=== PATIENT | female | born 1950 | race Caucasian/White ===

== ENCOUNTER 2018-09-23 13:08 | Inpatient (IN) ==
--- NOTE | 2018-09-23 13:44 | Emergency Department Note ---
Disposition Clinical Impression: Abdominal wall defect Bowel obstruction Qualifiers: Intestinal obstruction type: unspecified Intestinal obstruction extent: unspecified extent Qualified Code(s): K56.609 - Unspecified intestinal obstruction, unspecified as to partial versus complete obstruction Disposition: Admitted As Inpatient Condition: Good Time of Disposition: 14:58 Abdominal Pain HPI - General Chief Complaint: ED Abdominal Pain Stated Complaint: ABD Pain Nausea Time Seen by Provider: 09/23/18 13:19 Source: patient Mode of arrival: wheelchair Nursing Notes Reviewed: Yes Vital Signs Reviewed: Yes (mildly hypertensive) - History of Present Illness HPI Narrative: Ms. Chilel is a 67 year old female with history of CAD s/p stent about 5-6 years ago and she is uncertain if on DAPT, tobacco use, htn, reportedly no lung problems but on inhalers and oxygen at night time, a history of bowel surgery in 2016 at [place] for bowel obstruction of uncertain cause, large abdominal hernia, and history of hysterectomy who presents to the ED with complaint of abdominal pain that started 2 days ago and has started to develop nausea and vomiting over the last 24 hours. Last vomited this morning and was yellow clear. Patient reports that she has a tight and stabbing sensation of her abdomen that started in lower part on the right side and then travels to the upper quadrants bilaterally. No radiation to back. Patient reports it is waxing and waning, but worsening in severity. No changes in urination, no hematuria, no dysuria. Has had a small bowel movement that was watery and brown before arrival, but denies significant bowel movement, blood in bowel movement, or tenesmus. Patient does report problems having bowel movement because she is on percocet 5mg for her chronic back pain. Patient denies new changes to her back pain, but does have right sided back pain constantly and numbness of her left side of her back that is not new and started after nerve ablation in the past. Endorses no chest pain or pressure or tightness, but does report shortness of breath with exertion. Reports this started about 2 days ago as well. Patient last ate any food without nausea or vomiting yesterday afternoon. Some chills. Denies fever, sweats, chest pain, palpitations, cough, changes in urination, weakness, new loss of sensation, or rash. Pain Scale: 10 - Related Data Allergies Allergy/AdvReac Type Severity Reaction Status Date / Time codeine AdvReac Itching Verified 09/23/18 19:10 Review of Systems: As Per HPI Abdominal Pain PMH - Past Medical History Medical history: Reports: coronary artery disease (s/p stents 5-6 years ago.), hypertension, other (pulmonary issues unspecified, chronic back pain) Reports: other (PSH of bowel surgery unspecified for bowel obstructionin 2016, large abdominal hernia) Female Surgical History: Reports: hysterectomy - Social History Smoking status: Current every day smoker (1 ppd for last 7 months) Alcohol use: Reports: none Drug use: Reports: none Physical Exam - General General appearance: alert, other (mild discomfort, prefers to lay on her right side) - Head Head exam: atraumatic, normal inspection - Eye Eye exam: Present: normal appearance - ENT ENT exam: mucous membranes dry (lips cracked and dry) - Neck Neck exam: Present: normal inspection, full ROM, trachea midline - Chest Chest inspection: Present: normal inspection - Respiratory Respiratory exam: Present: wheezes (significant wheezing throughout without rales or rhonchi), other (no conversational dyspnea) - Cardiovascular Cardiovascular exam: Present: regular rate, normal rhythm, normal heart sounds - Abdominal Exam Abdominal exam: Present: soft, tenderness, normal bowel sounds, other (multiple well healed surgical scars, large abdominal wall defect bilaterally without tenderness over the defect, no overlying skin findings on abdomen. ). Absent: guarding, rebound, rigidity Abdominal tenderness: Present: RUQ, RLQ, LUQ, suprapubic - Extremities Exam Extremities exam: Present: normal inspection, normal capillary refill. Absent: tenderness, pedal edema - Back Exam Back exam: Present: normal inspection, paraspinal tenderness, other (left paraspinal back numbness, right paraspinal tenderness with palpation, minimal spinal tenderness throughout unchanged per patient) - Neurological Exam Neurological exam: Present: alert, oriented X3 - Skin Skin exam: Present: warm, dry, intact, normal color. Absent: rash, diaphoresis, pallor Course - Reevaluation(s) Reevaluation #1: Spoke with surgery about case, admit to hospitalist and place ng tube. Time: 14:47 Reevaluation #2: Spoke with hospitalist, no new orders. Admit. Time: 14:58 Vital Signs Temperature 98.4 F 09/23/18 13:09 Pulse Rate 84 09/23/18 13:09 Respiratory Rate 20 09/23/18 13:09 Blood Pressure 155/95 09/23/18 13:09 O2 Sat by Pulse Oximetry 92 09/23/18 13:09 Temperature 98.4 F 09/23/18 13:09 Pulse Rate 71 09/23/18 17:58 Respiratory Rate 16 09/23/18 17:58 Blood Pressure 152/85 09/23/18 17:58 O2 Sat by Pulse Oximetry 94 09/23/18 17:58 Oxygen Delivery Oxygen Delivery Nasal Cannula Abdominal Pain - MDM Narrative Medical decision making narrative: Patient with hx of bowel surgery with complaint of abdominal pain worsening and some nausea and vomiting. Also with endorsed shortness of breath with exertion. Given the exam and history, differential is very broad but including and not limited to possible bowel obstruction vs appendicitis vs choelcystitis vs ileus vs constipation. Will obtain labs and imaging with CT abd/pelvis non contrast. Given patients history of heart issues and she is a poor historian, ordered troponin and ekg. Dry mucous membranes, start IV fluids, may consider zofran as needed. Patient does have chronic back pain and requested pain medications stronger than percocet 5mg that she usually takes, will hold off at this time while we await workup. Low likelihood of acute abdominal causes including but not limited to bowel perforation, bowel ischemia, or AAA. CT revealed bowel obstruciton of large and small bowel with transition point of rectosigmoid junction as well as large abdominal wall defect. Zofran given, fentanyl 75mcg IVP, Admit to Hospitalist given medical history. No ng tube needed at this time as not actively vomiting. Discussed case with surgery, place ng tube and discussed case in further detail and admit to hospitalist. - Lab Data Lab results reviewed: Yes I reviewed the patient's lab results. Lab results narrative: labs reviewed and no elevated wbc. Result diagrams: 09/23/18 13:28 09/23/18 13:28 Lab Results 09/23/18 09/23/18 09/23/18 Range/Units 13:28 13:28 13:28 WBC 10.9 (4.3-11.1) K/mcL RBC 5.40 H (3.82-4.97) M/mcL Hgb 16.0 H (11.5-15.4) g/dL Hct 49.9 H (35.3-44.9) % MCV 92.4 (83.0-100.0) fL MCH 29.6 (28.0-33.3) pg MCHC 32.1 (31.6-35.5) g/dL RDW 16.3 H (11.5-14.5) % Plt Count 246 (140-400) K/mcL MPV 9.4 (9.4-12.4) fL Immature Gran % 0.5 (0-4) % Seg Neutrophils % 81.4 % Lymphocytes % 11.0 % Monocytes % 6.7 % Eosinophils % 0.2 % Basophils % 0.2 % Neutrophils # 8.9 (1.6-8.9) K/mcL Lymphocytes # 1.2 (0.6-4.6) K/mcL Monocytes # 0.7 (0.0-1.3) K/mcL Eosinophils # 0.0 (0.0-0.6) K/mcL Basophils # 0.0 (0.0-0.2) K/mcL Sodium 138 (136-145) mEq/L Potassium 4.1 (3.5-5.1) mEq/L Chloride 98 (98-107) mEq/L Carbon Dioxide 33 H (23-29) mEq/L BUN 18 (8-23) mg/dL Creatinine 1.07 (0.60-1.20) mg/dL Est GFR ( Amer) > 60 (> 60) Est GFR (Non-Af Amer) 51 L (> 60) BUN/Creatinine Ratio 17 (6-26) Glucose 128 H (70-105) mg/dL Est Mean Plasma Glucose 134 mg/dl Hemoglobin A1c 6.3 H ( - 5.6) % Calculated Osmolality 290 (280-300) Calcium 9.3 (8.6-10.3) mg/dL Total Bilirubin 0.9 (0.3-1.0) mg/dL Direct Bilirubin 0.2 (0.0-0.2) mg/dL Indirect Bilirubin 0.7 (0.0-1.2) mg/dL AST 81 H (13-39) Units/L ALT 79 H (7-52) Units/L Alkaline Phosphatase 107 H (34-104) Units/L Troponin I < 0.03 (< 0.04) ng/mL Serum Total Protein 7.0 (6.4-8.9) g/dL Albumin 4.0 (3.5-5.7) g/dL Globulin 3.0 (2.4-3.5) g/dL Albumin/Globulin Ratio 1.3 (1.1-2.2) Lipase 11 (11-82) Units/L Urine Color (Yellow) Urine Clarity (Clear) Urine pH (5.0-8.0) pH Units Ur Specific [place] (1.010-1.025) Urine Protein (Neg-Trace) mg/dL Urine Glucose (UA) (Normal) mg/dL Urine Ketones (Negative) mg/dL Urine Blood (Negative) Urine Nitrite (Negative) Urine Bilirubin (Negative) Urine Urobilinogen (Normal) mg/dL Ur Leukocyte Esterase (Negative) Urine Microscopic RBC (0-3) per hpf Urine Microscopic WBC (0-3) per hpf Ur Squamous Epith Cells (None-Few) per lpf Triple Phos Crystals Urine Bacteria (None-Few) per hpf Hyaline Casts (None-Few) per lpf Ur Culture Indicated? (NO) 09/23/18 Range/Units 16:05 WBC (4.3-11.1) K/mcL RBC (3.82-4.97) M/mcL Hgb (11.5-15.4) g/dL Hct (35.3-44.9) % MCV (83.0-100.0) fL MCH (28.0-33.3) pg MCHC (31.6-35.5) g/dL RDW (11.5-14.5) % Plt Count (140-400) K/mcL MPV (9.4-12.4) fL Immature Gran % (0-4) % Seg Neutrophils % % Lymphocytes % % Monocytes % % Eosinophils % % Basophils % % Neutrophils # (1.6-8.9) K/mcL Lymphocytes # (0.6-4.6) K/mcL Monocytes # (0.0-1.3) K/mcL Eosinophils # (0.0-0.6) K/mcL Basophils # (0.0-0.2) K/mcL Sodium (136-145) mEq/L Potassium (3.5-5.1) mEq/L Chloride (98-107) mEq/L Carbon Dioxide (23-29) mEq/L BUN (8-23) mg/dL Creatinine (0.60-1.20) mg/dL Est GFR ( Amer) (> 60) Est GFR (Non-Af Amer) (> 60) BUN/Creatinine Ratio (6-26) Glucose (70-105) mg/dL Est Mean Plasma Glucose mg/dl Hemoglobin A1c ( - 5.6) % Calculated Osmolality (280-300) Calcium (8.6-10.3) mg/dL Total Bilirubin (0.3-1.0) mg/dL Direct Bilirubin (0.0-0.2) mg/dL Indirect Bilirubin (0.0-1.2) mg/dL AST (13-39) Units/L ALT (7-52) Units/L Alkaline Phosphatase (34-104) Units/L Troponin I (< 0.04) ng/mL Serum Total Protein (6.4-8.9) g/dL Albumin (3.5-5.7) g/dL Globulin (2.4-3.5) g/dL Albumin/Globulin Ratio (1.1-2.2) Lipase (11-82) Units/L Urine Color Dark Yellow (Yellow) Urine Clarity Turbid A (Clear) Urine pH 7.5 (5.0-8.0) pH Units Ur Specific [place] 1.023 (1.010-1.025) Urine Protein 30 H (Neg-Trace) mg/dL Urine Glucose (UA) Normal (Normal) mg/dL Urine Ketones Trace H (Negative) mg/dL Urine Blood Negative (Negative) Urine Nitrite Negative (Negative) Urine Bilirubin Small H (Negative) Urine Urobilinogen Normal (Normal) mg/dL Ur Leukocyte Esterase Small H (Negative) Urine Microscopic RBC 5-15 H (0-3) per hpf Urine Microscopic WBC 5-15 H (0-3) per hpf Ur Squamous Epith Cells Many H (None-Few) per lpf Triple Phos Crystals Present Urine Bacteria Moderate H (None-Few) per hpf Hyaline Casts None Seen (None-Few) per lpf Ur Culture Indicated? YES A (NO) - Radiology Data Radiology results reviewed: Yes I reviewed the patient's radiology results. Abdomen/Pelvis CT 09/23/18 13:28 IMPRESSION: Findings compatible with bowel obstruction involving both large and small bowel with transition point in region of anastomotic sutures of rectosigmoid junction. Superimposed colonic diverticulosis without evidence for diverticulitis. Superimposed large ventral abdominal hernia which contains both loops of large and small bowel. This does not appear to be contributing to the bowel obstruction. No evidence for strangulation or incarceration identified. Additional incidental findings as above, none of which require dedicated imaging follow-up. D/ / 09/23/2018 14:19:29 Jae Rodriguez MD / stan Interpreting Provider: Jae Rodriguez MD - EKG Data EKG attestation: Yes I reviewed and interpreted this EKG. EKG results narrative: nonspecific t wave inversion in lead aVL. rate 73 EKG shows normal: sinus rhythm Rate: normal Rhythm: NSR When compared to previous EKG there are: no significant changes Interpretation: no acute changes, normal EKG
[2018-09-23 13:49] LABS: Basophils % 0.2 %; Eosinophils % 0.2 %; Hematocrit 49.9 % (35.3-44.9); Immature Granulocytes % 0.5 % (0-4); Lymphocytes # 1.2 K/mcL (0.6-4.6); Mean Corpuscular HGB Conc 32.1 g/dL (31.6-35.5); Mean Corpuscular Hemoglobin 29.6 pg (28.0-33.3); Mean Corpuscular Volume 92.4 fL (83.0-100.0); Mean Platelet Volume 9.4 fL (9.4-12.4); Monocytes # 0.7 K/mcL (0.0-1.3); Monocytes % 6.7 %; Neutrophils # 8.9 K/mcL (1.6-8.9); Platelet Count 246 K/mcL (140-400); Red Cell Distribution Width 16.3 % (11.5-14.5); Segmented Neutrophils % 81.4 %
[2018-09-23] MEDS ORDERED: 0.9 % Sodium Chloride 1,000 ML IVC ONE (13:52)
[2018-09-23 13:59] LABS: Alanine Aminotransferase 79 Units/L (7-52); Albumin/Globulin Ratio 1.3 (1.1-2.2); Alkaline Phosphatase 107 Units/L (34-104); Aspartate Amino Transferase 81 Units/L (13-39); BUN/Creatinine Ratio 17 (6-26); Bilirubin,Direct 0.2 mg/dL (0.0-0.2); Bilirubin,Indirect 0.7 mg/dL (0.0-1.2); Bilirubin,Total 0.9 mg/dL (0.3-1.0); Blood Urea Nitrogen 18 mg/dL (8-23); Calcium 9.3 mg/dL (8.6-10.3); Carbon Dioxide 33 mEq/L (23-29); Chloride 98 mEq/L (98-107); Glucose 128 mg/dL (70-105); Lipase 11 Units/L (11-82); Osmolality,Calculated 290 (280-300); Potassium 4.1 mEq/L (3.5-5.1); Sodium 138 mEq/L (136-145); eGFR For Non-African Americans 51 (> 60)
[2018-09-23 14:06] LABS: Troponin I < 0.03 ng/mL (< 0.04)
[2018-09-23] MEDS ORDERED: Ondansetron 4 MG/2 ML VIAL IVP ONE ×2 (14:32→17:46)
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
[2018-09-23] MEDS ORDERED: *HR* FentaNYL (PF) 100 MCG/2 ML VIAL IVP ONE (14:45)
[2018-09-23] MEDS ORDERED: *HR* FentaNYL PATCH 75 MCG PATCH TD SCH (14:45)
[2018-09-23] MEDS ORDERED: Naloxone 0.4 MG/ML INJ IVP PRN (15:04)
[2018-09-23] MEDS ORDERED: OXYCODONE Oral CONC 10 MG/0.5 ML ORAL.SYG SL PRN (15:04)
[2018-09-23] MEDS ORDERED: D5% in Water 1,000 ML IVC PRN (15:07)
[2018-09-23] MEDS ORDERED: Dextrose Gel 15 GM/37.5 ML TUBE PO PRN ×2 (15:07)
[2018-09-23] MEDS ORDERED: *HR* Dextrose 50 % in Water (Syg) 50 ML SYRINGE IVP PRN (15:07)
--- NOTE | 2018-09-23 15:09 | Internal Med History&Physical ---
<Turner Khan - Last Filed: 09/23/18 16:07> Date of Encounter: 09/23/18 Time of Encounter: 15:25 Internal Medicine - H&P: HPI Chief complaint: Abdominal pain Admitted From: Emergency Dept Plans for Post Hospital Care: Home History of present illness: Ms. Chilel is a 67 year old female with history of coronary artery disease status post stents approximately 78 years ago, hypertension, bowel obstruction in 2016 requiring surgical intervention who presented to the ED with 2 day history of nausea and vomiting as well as periumbilical abdominal pain. She states the periumbilical pain that started approximately 2 days ago and it radiates towards the right upper quadrant. The pain is extremely severe and is constant. It is approximately 10 out of 10 in severity and is cramping in nature. It is associated with nausea and vomiting, and she has had constipation as well. She does say that she had a regular bowel movement on Thursday, however since that time she has had very minimal bowel movements including one episode of very small diarrhea on both days however she is not having very much gas at this point even. She said that she has never had anything significantly similar to this, however the pain is excruciating. She says that she has tried several [id number] treatments for this including Gas-X, Mally-Higgins, milk of magnesia however none of that seems to help. There does not seem to be any position that makes the pain any better and eating seems to make it worse. In the emergency room the patient received a CT of the abdomen and pelvis which demonstrated findings compatible with bowel obstruction involving both large and small bowel with transition point in the region of the anastomotic sutures of the rectosigmoid junction. Her vitals were essentially normal, as were her labs with the exception of a very mild transaminitis with AST 81 and ALT 79. Surgery was consulted from the ER and recommended insertion of an NG tube for gastric decompression and admission to the hospitalist team. Past Med Surg Social [facility]am HX - Past Medical History Medical history: coronary artery disease (s/p stents 5-6 years ago.), hypertension, other (pulmonary issues unspecified, chronic back pain) - Past Surgical History Additional surgical history: bowel surgery - Social History Smoking Status: Current every day smoker (1 ppd for last 7 months) Smokeless Tobacco Status: No Alcohol use: none Drug use: none Internal Medicine - H&P: Meds Allergy/AdvReac Type Severity Reaction Status Date / Time codeine AdvReac Itching Verified 09/23/18 15:12 All Systems PM: A 10-system review of systems was performed and is negative for pertinent findings except as documented above in the HPI. - Constitutional Constitutional: no chills, no fever(s), no night sweats - EENT Eyes: no change in vision, no discharge, no pain, no photophobia Ears: no ear discharge, no ear pain, no tinnitus Nose, mouth and throat: no dysphagia, no nasal discharge, no neck pain, no sore throat - Cardiovascular Cardiovascular ROS IM: no chest pain, no diaphoresis, no dyspnea, no lightheadedness, no palpitations, no syncope - Respiratory Respiratory: dyspnea, dyspnea on exertion, wheezing, no cough, no pain on inspiration, no excessive phlegm production - Gastrointestinal Gastrointestinal: abdominal pain, change in bowel habits, constipation, cramping, vomiting, no diarrhea, no hematemesis, no hematochezia, no melena, no nausea - Genitourinary Genitourinary: no change in urinary stream, no dysuria, no flank pain, no hem aturia - Musculoskeletal Musculoskeletal ROS IM: no numbness, no tingling - Integumentary Integumentary IM: no rash, no unusual bruising - Neurological Neurological ROS: no confusion, no convulsions, no focal weakness, no numbness, no tingling, no tremor(s) - Hematologic/Lymphatic Hematologic/Lymphatic: no easy bruising - Constitutional Vitals: Temp Pulse Resp BP Pulse Ox 98.4 F 71 18 131/73 95 09/23/18 13:09 09/23/18 14:52 09/23/18 14:52 09/23/18 14:52 09/23/18 14:52 Exam: Gen: Vitals noted. No acute distress but appears very uncomfortable Eyes: anicteric sclerae, moist conjunctivae; no lid-lag; Pupils equal and react nikhil to light HENT: Atraumatic; oropharynx clear with dry membranes and no mucosal ulcerations; normal hard and soft palate Neck: Trachea midline; supple, no thyromegaly or lymphadenopathy Cardiac: RRR, no murmur, +S1/S2 Pulmonary: Diffusely wheezy to auscultation bilaterally Abdomen: soft, tender to deep palpation. Hypoactive bowel sounds noted in all 4 quadrants. No masses or hepatosplenomegaly. There is a midline vertical scar with bulging hernia noted bilaterally MSK: ROM intact, no joint swelling noted Extremities: no BLE edema, nontender calf, no cyanosis or clubbing Skin: Normal temperature, turgor and texture; no rash, ulcers or subcutaneous nodules Neuro: moves all extremities, no focal deficits. Psych: Appropriate mood and behavior. A&Ox3 Internal Med - H&P Results - Labs CBC & Chem 7: 09/23/18 13:28 09/23/18 13:28 Labs: Short CBC 09/23/18 Range/Units 13:28 WBC 10.9 (4.3-11.1) K/mcL Hgb 16.0 H (11.5-15.4) g/dL Hct 49.9 H (35.3-44.9) % Plt Count 246 (140-400) K/mcL Neutrophils # 8.9 (1.6-8.9) K/mcL BMP 09/23/18 13:28 Sodium 138 Potassium 4.1 Chloride 98 Carbon Dioxide 33 H BUN 18 Creatinine 1.07 Glucose 128 H Calcium 9.3 Cardiac Enzymes 09/23/18 Range/Units 13:28 Troponin I < 0.03 (< 0.04) ng/mL Liver Function 09/23/18 Range/Units 13:28 Total Bilirubin 0.9 (0.3-1.0) mg/dL Direct Bilirubin 0.2 (0.0-0.2) mg/dL AST 81 H (13-39) Units/L ALT 79 H (7-52) Units/L Alkaline Phosphatase 107 H (34-104) Units/L Albumin 4.0 (3.5-5.7) g/dL - Impressions ITS Impressions Abdomen/Pelvis CT 09/23/18 13:28 IMPRESSION: Findings compatible with bowel obstruction involving both large and small bowel with transition point in region of anastomotic sutures of rectosigmoid junction. Superimposed colonic diverticulosis without evidence for diverticulitis. Superimposed large ventral abdominal hernia which contains both loops of large and small bowel. This does not appear to be contributing to the bowel obstruction. No evidence for strangulation or incarceration identified. Additional incidental findings as above, none of which require dedicated imaging follow-up. D/ / 09/23/2018 14:19:29 Jae Rodriguez MD / stan Interpreting Provider: Jae Rodriguez MD - Assessment and Plan (1) Bowel obstruction Current Visit: Yes Status: Acute Assessment and plan: Bowel obstruction involving the large and small intestine as noted on CT abdomen Patient does have history of small and large bowel obstruction the past requiring surgical correction Surgery was consulted from the ED, notes that surgery was completed in 1998 in 1999 at [place] and patient does have hostile abdomen Per surgery recommendation, place NG tube with bowel rest Plan for small bowel follow-through in 72 hours Nothing by mouth IV fluids with D5 0.45 nacl Obtain cardiac clearance for potential surgery Qualifiers: Intestinal obstruction type: obstruction due to adhesions Intestinal obstruction extent: partial Qualified Code(s): K56.51 - Intestinal adhesions [bands], with partial obstruction (2) COPD (chronic obstructive pulmonary disease) Current Visit: Yes Status: Acute Assessment and plan: Suspect severe COPD, on brochodilators at home however unknown which ones On home O2 at night at 2L Will start advair, duonebs as needed Continous O2 monitoring Titrate O2 to 88-92% Qualifiers: COPD type: chronic bronchitis Chronic bronchitis type: simple Qualified Code(s): J41.0 - Simple chronic bronchitis (3) CAD (coronary artery disease) Current Visit: Yes Status: Acute Assessment and plan: CAD s/p PCI 7-8 years ago Unknown medical regimen Obtain medicine list Plan to continue home meds EKG in ED shows nonspecific ST-T wave changes, will need to compare to old EKG Request records from [facility] Will get Echo Qualifiers: Coronary Disease-Associated Artery/Lesion type: [place] artery [place] vs. transplanted heart: cherokee heart Associated angina: without angina Qualified Code(s): I25.10 - Atherosclerotic heart disease of cherokee coronary artery without angina pectoris (4) Hypertension Current Visit: Yes Status: Acute Assessment and plan: Monitor BP Qualifiers: Hypertension type: essential hypertension Qualified Code(s): I10 - Essential (primary) hypertension (5) DVT prophylaxis Current Visit: Yes Status: Acute Assessment and plan: SQ Heparin (6) Preop cardiovascular exam Current Visit: Yes Status: Acute Assessment and plan: RCRI score 1, Class II risk, 6% 30 day mortality risk EKG has nonspecific ST-T wave changes We will compare to old EKG, repeat EKG in AM Get Echo in AM If abnormal, consider cardiology consult prior to surgery - Time Spent With Patient Total time spent is greater than 50% in coordination of care (as documented) at patient's floor/unit and/or counseling patient: <Marlon Rothman - Last Filed: 09/23/18 18:44> Date of Encounter: 09/23/18 Internal Medicine - H&P: HPI History of present illness: Ms. Chilel is a 67 year old female All Systems PM: A 10-system review of systems was performed and is negative for pertinent findings except as documented above in the HPI. - Constitutional Vitals: Temp Pulse Resp BP Pulse Ox 98.4 F 71 16 152/85 94 09/23/18 13:09 09/23/18 17:58 09/23/18 17:58 09/23/18 17:58 09/23/18 17:58 Internal Med - H&P Results - Labs CBC & Chem 7: 09/23/18 13:28 09/23/18 13:28 Labs: Short CBC 09/23/18 Range/Units 13:28 WBC 10.9 (4.3-11.1) K/mcL Hgb 16.0 H (11.5-15.4) g/dL Hct 49.9 H (35.3-44.9) % Plt Count 246 (140-400) K/mcL Neutrophils # 8.9 (1.6-8.9) K/mcL BMP 09/23/18 13:28 Sodium 138 Potassium 4.1 Chloride 98 Carbon Dioxide 33 H BUN 18 Creatinine 1.07 Glucose 128 H Calcium 9.3 Cardiac Enzymes 09/23/18 Range/Units 13:28 Troponin I < 0.03 (< 0.04) ng/mL Liver Function 09/23/18 Range/Units 13:28 Total Bilirubin 0.9 (0.3-1.0) mg/dL Direct Bilirubin 0.2 (0.0-0.2) mg/dL AST 81 H (13-39) Units/L ALT 79 H (7-52) Units/L Alkaline Phosphatase 107 H (34-104) Units/L Albumin 4.0 (3.5-5.7) g/dL Urine 09/23/18 Range/Units 16:05 Urine Color Dark Yellow (Yellow) Urine Clarity Turbid A (Clear) Urine pH 7.5 (5.0-8.0) pH Units Ur Specific [place] 1.023 (1.010-1.025) Urine Protein 30 H (Neg-Trace) mg/dL Urine Glucose (UA) Normal (Normal) mg/dL - Impressions ITS Impressions Abdomen/Pelvis CT 09/23/18 13:28 IMPRESSION: Findings compatible with bowel obstruction involving both large and small bowel with transition point in region of anastomotic sutures of rectosigmoid junction. Superimposed colonic diverticulosis without evidence for diverticulitis. Superimposed large ventral abdominal hernia which contains both loops of large and small bowel. This does not appear to be contributing to the bowel obstruction. No evidence for strangulation or incarceration identified. Additional incidental findings as above, none of which require dedicated imaging follow-up. D/ / 09/23/2018 14:19:29 Jae Rodriguez MD / stan Interpreting Provider: Jae Rodriguez MD - Assessment and Plan (1) Bowel obstruction Current Visit: Yes Status: Suspected Qualifiers: Intestinal obstruction type: obstruction due to adhesions Intestinal o bstruction extent: complete Qualified Code(s): K56.52 - Intestinal adhesions [bands] with complete obstruction (2) CAD (coronary artery disease) Current Visit: Yes Status: Acute Qualifiers: Coronary Disease-Associated Artery/Lesion type: [place] artery [place] vs. transplanted heart: cherokee heart Associated angina: without angina Qualified Code(s): I25.10 - Atherosclerotic heart disease of cherokee coronary artery without angina pectoris (3) Hypertension Current Visit: Yes Status: Acute Qualifiers: Hypertension type: essential hypertension Qualified Code(s): I10 - Essential (primary) hypertension (4) DVT prophylaxis Current Visit: Yes Status: Acute (5) COPD (chronic obstructive pulmonary disease) Current Visit: Yes Status: Acute Qualifiers: COPD type: chronic bronchitis Chronic bronchitis type: simple Qualified Code(s): J41.0 - Simple chronic bronchitis (6) Preop cardiovascular exam Current Visit: Yes Status: Acute (7) Tobacco abuse Current Visit: Yes Status: Chronic (8) Incisional hernia Current Visit: Yes Status: Chronic Qualifiers: Obstruction and gangrene presence: without obstruction or gangrene Qualified Code(s): K43.2 - Incisional hernia without obstruction or gangrene; K43.91 - Incisional hernia, without obstruction or gangrene - Time Spent With Patient Total time spent is greater than 50% in coordination of care (as documented) at patient's floor/unit and/or counseling patient: - Attending Attestation I examined this patient and my medical decision-making was reviewed with the Resident Physician on 09/23/18. I agree with the documented findings, disposition and treatment plan as described except to the extent set forth below. Ms Chilel is 67 y/o female with hx of multiple abdominal issues and large incisional hernia presented to ED with abdominal pain with vomiting. She has been found to have acute bowel obstruction. NG placed and pt seen by surgical service. She is to be admitted. Exam Alert Resting comfortably at this time Mucus membranes dry Heart not tachy No wheeze abd with scant sounds No edema Moves all extremities I/P 1. Acute bowel obstruction - NG, NPO. SBFT per surgery in 72 hours 2. Incisional hernia 3. CAD - echo ordered 4. Probable COPD - respiratory therapy. Pt is high risk for further complications and is admitted inpatient.
--- NOTE | 2018-09-23 15:32 | AcuteCare Surgery Consult Note ---
Date of Encounter: 09/23/18 Time of Encounter: 15:00 Assessment and Plan (1) Bowel obstruction Current Visit: Yes Status: Acute The patient has bowel obstruction by physical examination and CAT scan. She has a hostile abdomen with loss of domain multiple entry midline and multiple previous ostomy sites. We will plan nasogastric tube drainage with bowel rest and hydration. We will plan small bowel follow-through in 72 hours. Qualifiers: Intestinal obstruction type: obstruction due to adhesions Intestinal obstruction extent: partial Qualified Code(s): K56.51 - Intestinal adhesions [bands], with partial obstruction History of Present Illness Consult date: 09/23/18 Reason for consult: abdominal pain History of present illness: The patient is a 67-year-old morbidly obese female with severe COPD oxygen dependence and continued tobacco abuse. She has coronary artery disease with at least 2 coronary artery stents. She has a highly complex abdomen. She has a multiple entry midline incision and multiple transverse incisions in the right lower quadrant and right upper quadrant. She had surgery here at [place] in 1998 and 1999. She is also had Suzan at [facility] as recently as 2 years ago with colostomy and then follow-up reversal of colostomy. She now presents with a several day history of crampy abdominal pain and vomiting. I personally reviewed the CAT scan and the abdomen. She has a highly complex incisional hernia with loss of domain the upper abdominal incisional hernia is reducible. The CAT scan demonstrates dilated small bowel and dilated anastomosis in the right lower quadrant. Incisional hernia runs from just below the xiphoid to just above the pubis. This is highly complex with multiple openings. The largest defect is almost 20 cm. This represents a hostile abdomen with loss of domain. We will treat her with nasogastric tube drainage hydration and bowel rest. We will try to avoid surgery. We will plan at least 3 days nasogastric tube drainage followed by upper GI and small bowel follow-through to Past Med Surg [facility] - Past Medical History Medical history: coronary artery disease (s/p stents 5-6 years ago.), hypertension, other (pulmonary issues unspecified, chronic back pain) - Past Surgical History Additional surgical history: bowel surgery. The patient has had multiple surgical procedures including multiple ostomies. The patient has loss of domain at this time - Social History Smoking Status: Current every day smoker (1 ppd for last 7 months) Smokeless Tobacco Status: No Alcohol use: none Drug use: none Medications and Allergies Allergy/AdvReac Type Severity Reaction Status Date / Time codeine AdvReac Itching Verified 09/23/18 15:12 Review of Systems All systems PM: The remainder of the systems were reviewed and are negative General Surgery Exam Initial Vital Signs Temp Pulse Resp BP Pulse Ox 98.4 F 84 20 155/95 92 09/23/18 13:09/23/18 13:09/23/18 13:09/23/18 13:09/23/18 13:09 - General physical appearance well developed, moderate pain, chronically ill, obese, other (Resting dyspnea) - Neck no masses, no bruits, trachea midline, no lymphadectomy, no venous distension - Respiratory crackles: bilateral, wheezing: bilateral (Bilateral decreased breath sounds) - Abdomen Abdomen general surgery: Present: bowel sounds present, soft, non tender (The patient has no guarding and no rebound. She has a highly complex midline recurrent incisional hernia with loss of domain. The largest fascial defect is palpated at almost 20 cm. She has multiple previous ostomy sites) - Integumentary Integumentary general surgery: Present: warm and dry, no abnormal pigmentation - Neurologic Present: CN 2-12 grossly intact, normal coordination, normal sensation - Psychiatric Psychiatric general surgery: Present: appropriate, oriented to person, oriented to place, oriented to time, speech is normal, memory intact Exam Initial Vital Signs Temp Pulse Resp BP Pulse Ox 98.4 F 84 20 155/95 92 09/23/18 13:09/23/18 13:09/23/18 13:09/23/18 13:09/23/18 13:09 Results - Labs 09/23/18 13:28 09/23/18 13:28 Abnormal lab results RBC 5.40 M/mcL (3.82-4.97) H 09/23/18 13:28 Hgb 16.0 g/dL (11.5-15.4) H 09/23/18 13:28 Hct 49.9 % (35.3-44.9) H 09/23/18 13:28 RDW 16.3 % (11.5-14.5) H 09/23/18 13:28 Carbon Dioxide 33 mEq/L (23-29) H 09/23/18 13:28 Est GFR (Non-Af Amer) 51 (> 60) L 09/23/18 13:28 Glucose 128 mg/dL (70-105) H 09/23/18 13:28 AST 81 Units/L (13-39) H 09/23/18 13:28 ALT 79 Units/L (7-52) H 09/23/18 13:28 107 Units/L (34-104) H 09/23/18 13:28 Diabetes panel 09/23/18 Range/Units 13:28 Sodium 138 (136-145) mEq/L Potassium 4.1 (3.5-5.1) mEq/L Chloride 98 (98-107) mEq/L Carbon Dioxide 33 H (23-29) mEq/L BUN 18 (8-23) mg/dL Creatinine 1.07 (0.60-1.20) mg/dL Glucose 128 H (70-105) mg/dL Calcium 9.3 (8.6-10.3) mg/dL AST 81 H (13-39) Units/L ALT 79 H (7-52) Units/L Alkaline Phosphatase 107 H (34-104) Units/L Albumin 4.0 (3.5-5.7) g/dL Calcium panel 09/23/18 Range/Units 13:28 Calcium 9.3 (8.6-10.3) mg/dL Albumin 4.0 (3.5-5.7) g/dL Pituitary panel 09/23/18 Range/Units 13:28 Sodium 138 (136-145) mEq/L Potassium 4.1 (3.5-5.1) mEq/L Chloride 98 (98-107) mEq/L Carbon Dioxide 33 H (23-29) mEq/L BUN 18 (8-23) mg/dL Creatinine 1.07 (0.60-1.20) mg/dL Glucose 128 H (70-105) mg/dL Calcium 9.3 (8.6-10.3) mg/dL Adrenal panel 09/23/18 Range/Units 13:28 Sodium 138 (136-145) mEq/L Potassium 4.1 (3.5-5.1) mEq/L Chloride 98 (98-107) mEq/L Carbon Dioxide 33 H (23-29) mEq/L BUN 18 (8-23) mg/dL Creatinine 1.07 (0.60-1.20) mg/dL Glucose 128 H (70-105) mg/dL Calcium 9.3 (8.6-10.3) mg/dL Total Bilirubin 0.9 (0.3-1.0) mg/dL AST 81 H (13-39) Units/L ALT 79 H (7-52) Units/L Alkaline Phosphatase 107 H (34-104) Units/L Albumin 4.0 (3.5-5.7) g/dL All other labs normal. - Imaging CT scan - abdomen: image reviewed (I personally reviewed the CAT scan the abdome n. She has dilated small bowel and dilated the anastomosis on the right side of the abdomen. There are no intra-abdominal abscesses or fluid collections. Findings are consistent with bowel obstruction.) Consult Discharge Plan - Plan Referrals: NONE,PCP [Primary Care Provider] -
[2018-09-23] MEDS ORDERED: Ipratropium/Albuterol Neb 3 ML IH PRN (15:46)
[2018-09-23 15:59] LABS: Estimated Average Glucose 134 mg/dl; Hemoglobin A1C 6.3 %
[2018-09-23 16:21] LABS: Bilirubin,Urine Small (Negative); Blood,Urine Negative (Negative); Clarity,Urine Turbid (Clear); Color,Urine Dark Yellow (Yellow); Glucose,Urine (UA) Normal (Normal); Ketones,Urine Trace mg/dL (Negative); Leukocyte Esterase,Urine Small (Negative); Nitrite,Urine Negative (Negative); PH,Urine 7.5 pH Units (5.0-8.0); Protein,Urine 30 mg/dL (Neg-Trace); Specific Gravity,Urine 1.023 (1.010-1.025); Urobilinogen,Urine Normal (Normal)
[2018-09-23 16:23] LABS: Bacteria,Urine Moderate per hpf (None-Few); Hyaline Casts,Urine None Seen per lpf (None-Few); Squamous Epithelial Cell,Urine Many per lpf (None-Few)
[2018-09-23 16:53] LABS: Triple Phosphate Crystal,Urine Present
[2018-09-23] MEDS ORDERED: *HR* HYDROmorphone (PF) 1 MG/ML SYRINGE IVP ONE (17:46)
[2018-09-23] MEDS: Budesonide/Formoterol 80/4.5 MDI IH SCH (21:49)
[2018-09-23] MEDS: *HR* Heparin 5,000 UNIT/ML VIAL SQ SCH (23:02)
[2018-09-23] MEDS: OXYCODONE Oral CONC 10 MG/0.5 ML ORAL.SYG SL PRN (23:02)
[2018-09-23] MEDS: Nicotine 21 MG PATCH.TD24 TD SCH (23:03)
[2018-09-23] MEDS: D5% in 0.45% NACL 1,000 ML IVC SCH (23:03)
[2018-09-24 05:09] LABS: Basophils % 0.1 %; Eosinophils % 0.4 %; Hematocrit 46.7 % (35.3-44.9); Hemoglobin 14.8 g/dL (11.5-15.4); Immature Granulocytes % 0.2 % (0-4); Lymphocytes # 1.5 K/mcL (0.6-4.6); Lymphocytes % 18.4 %; Mean Corpuscular HGB Conc 31.7 g/dL (31.6-35.5); Mean Corpuscular Hemoglobin 29.7 pg (28.0-33.3); Mean Corpuscular Volume 93.6 fL (83.0-100.0); Mean Platelet Volume 9.8 fL (9.4-12.4); Monocytes # 1.2 K/mcL (0.0-1.3); Monocytes % 14.9 %; Neutrophils # 5.4 K/mcL (1.6-8.9); Platelet Count 228 K/mcL (140-400); Red Blood Count 4.99 M/mcL (3.82-4.97); Red Cell Distribution Width 15.9 % (11.5-14.5)
[2018-09-24] MEDS: OXYCODONE Oral CONC 10 MG/0.5 ML ORAL.SYG SL PRN ×2 (05:10→09:44)
[2018-09-24] MEDS: *HR* Heparin 5,000 UNIT/ML VIAL SQ SCH ×3 (05:10→23:46)
[2018-09-24 05:19] LABS: Prothrombin Time 11.3 Seconds (9.4-12.1)
[2018-09-24 05:24] LABS: Alanine Aminotransferase 61 Units/L (7-52); Albumin 3.7 g/dL (3.5-5.7); Albumin/Globulin Ratio 1.5 (1.1-2.2); Alkaline Phosphatase 95 Units/L (34-104); Aspartate Amino Transferase 49 Units/L (13-39); BUN/Creatinine Ratio 21 (6-26); Bilirubin,Total 0.6 mg/dL (0.3-1.0); Blood Urea Nitrogen 23 mg/dL (8-23); Carbon Dioxide 31 mEq/L (23-29); Chloride 101 mEq/L (98-107); Globulin 2.5 g/dL (2.4-3.5); Glucose 140 mg/dL (70-105); Magnesium 2.3 mg/dL (1.6-2.6); Osmolality,Calculated 292 (280-300); Potassium 3.9 mEq/L (3.5-5.1); Sodium 138 mEq/L (136-145); Total Protein 6.2 g/dL (6.4-8.9); eGFR For Non-African Americans 50 (> 60)
[2018-09-24] MEDS: Ondansetron 4 MG/2 ML VIAL IVP PRN (05:39)
[2018-09-24] MEDS: Budesonide/Formoterol 80/4.5 MDI IH SCH ×2 (07:23→20:08)
--- NOTE | 2018-09-24 08:16 | Internal Med Progress Note ---
<Marlon Rothman - Last Filed: 09/24/18 19:12> Hospitalist Progress Note - Encounter Date of Encounter: 09/24/18 - Exam Vitals: Temp Pulse Resp BP Pulse Ox 98.6 F 72 16 147/63 94 09/24/18 15:51 09/24/18 15:51 09/24/18 15:51 09/24/18 15:51 09/24/18 15:51 - Assessment and Plan (1) Bowel obstruction Current Visit: Yes Status: Acute (2) CAD (coronary artery disease) Current Visit: Yes Status: Acute (3) Hypertension Current Visit: Yes Status: Acute (4) DVT prophylaxis Current Visit: Yes Status: Acute (5) COPD (chronic obstructive pulmonary disease) Current Visit: Yes Status: Acute (6) Preop cardiovascular exam Current Visit: Yes Status: Acute (7) Tobacco abuse Current Visit: Yes Status: Chronic (8) Incisional hernia Current Visit: Yes Status: Chronic - Time Spent with Patient Total time spent is greater than 50% in coordination of care (as documented) at patient's floor/unit and/or counseling patient: Internal Medicine: Result - Labs CBC & Chem 7: 09/24/18 04:43 09/24/18 04:43 Labs: Short CBC 09/24/18 Range/Units 04:43 WBC 8.2 (4.3-11.1) K/mcL Hgb 14.8 (11.5-15.4) g/dL Hct 46.7 H (35.3-44.9) % Plt Count 228 (140-400) K/mcL Neutrophils # 5.4 (1.6-8.9) K/mcL BMP 09/24/18 04:43 Sodium 138 Potassium 3.9 Chloride 101 Carbon Dioxide 31 H BUN 23 Creatinine 1.08 Glucose 140 H Calcium 9.0 Liver Function 09/24/18 Range/Units 04:43 Total Bilirubin 0.6 (0.3-1.0) mg/dL AST 49 H (13-39) Units/L ALT 61 H (7-52) Units/L Alkaline Phosphatase 95 (34-104) Units/L Albumin 3.7 (3.5-5.7) g/dL - ABG Interpretation ABG results: PT/INR, D-dimer PT 11.3 Seconds (9.4-12.1) 09/24/18 04:43 - Impressions Impressions Abdomen/Pelvis CT 09/23/18 13:28 IMPRESSION: Findings compatible with bowel obstruction involving both large and small bowel with transition point in region of anastomotic sutures of rectosigmoid junction. Superimposed colonic diverticulosis without evidence for diverticulitis. Superimposed large ventral abdominal hernia which contains both loops of large and small bowel. This does not appear to be contributing to the bowel obstruction. No evidence for strangulation or incarceration identified. Additional incidental findings as above, none of which require dedicated imaging follow-up. D/ / 09/23/2018 14:19:29 Jae Rodriguez MD / stan Interpreting Provider: Jae Rodriguez MD Echocardiogram 09/23/18 15:44 Impressions: LVEF 55-60%. Mild left ventricular diastolic dysfunction. Normal right ventricular size and function. No significant valvular dysfunction. No evidence of pulmonary hypertension. Left Ventricular Wall Motion: Rest Echo Findings All wall segments showed normal motion. Findings: Study Quality * Technically adequate exam. ECG Findings * Normal sinus rhythm. Left Ventricle * LVEF 55-60%. * Normal LV chamber size, wall thickness and systolic function. * Mild left ventricular diastolic dysfunction. Right Ventricle * Normal right ventricular structure and function. Left Atrium * Normal left atrial size. Right Atrium * Normal right atrial size. Interatrial Septum * Interatrial septum not well evaluated. * No evidence of PFO by color Doppler. Aortic Valve * Trileaflet aortic valve with normal function. * No aortic stenosis. * No aortic regurgitation. Mitral Valve * Normal mitral valve structure. * No mitral stenosis. * Trace mitral regurgitation. Tricuspid Valve * Normal tricuspid valve structure and function. * No tricuspid stenosis. * No tricuspid regurgitation. * Unable to estimate RVSP due to lack of TR jet. * No evidence of pulmonary hypertension. * Estimated RA pressure is 3 mmHg. Pulmonic Valve * Pulmonic valve is not well visualized. * No pulmonic stenosis. * No pulmonic regurgitation. Aorta * Normally sized aortic root. Pericardium * The pericardium appears normal. IVC * The IVC is not dilated. * > 50% respiratory change KUB X-Ray 09/23/18 22:26 IMPRESSION: The enteric tube remains within the esophagus. The tube needs to be advanced 15 cm. D/ / Leo Chester MD / Leo Chester MD Interpreting Provider: Leo Chester MD X-Ray 09/24/18 00:15 IMPRESSION: 1. Nasogastric tube with its tip in the body of the stomach. D/ / Jaziel Galan MD / Jaziel Galan MD Interpreting Provider: Jaziel Galan MD Consult Discharge Plan - Plan Referrals: NONE,PCP [Primary Care Provider] - - Attending Attestation I examined this patient and my medical decision-making was reviewed with the Resident Physician on 09/24/18. I agree with the documented findings, disposition and treatment plan as described except to the extent set forth below. Ms Chilel is currently admitted for acute bowel obstruction. She remains moderate to high risk due to potential for worsening clinical status. Ms Chilel has had bowel movements today. No fever or chills. No CP. Breathing OK at this time. Exam alert Comfortable lying flat. Mucus membranes dry Heart reg No wheeze currently Abd soft. Faint bowel sounds No edema I/P 1. Bowel obstruction - per surgery. NPO with NG 2. Probable COPD Further diagnoses and plan as above. <Turner Khan - Last Filed: 09/24/18 19:28> Hospitalist Progress Note - Encounter Date of Encounter: 09/24/18 Time of Encounter: 10:10 - Subjective Interval History: The patient is resting in bed at time of examination. She says that this morning she has had 12 bowel movements already which are loose, and that her abdominal pain has largely resolved as a result. She has had a significant amount of fluid out per NG tube to LIS as well. Patient remains NPO at this time. - Exam Vitals: Temp Pulse Resp BP Pulse Ox 98.3 F 71 16 153/90 95 09/24/18 07:38 09/24/18 07:38 09/24/18 07:38 09/24/18 07:38 09/24/18 07:38 Exam: Gen: Vitals noted. No acute distress but appears very uncomfortable HENT: Atraumatic; oropharynx clear with dry membranes and no mucosal ulcerations; normal hard and soft palate. NG tube in place. Pulmonary: Diffusely wheezy to auscultation bilaterally Abdomen: soft, tender to deep palpation. Hypoactive bowel sounds noted in all 4 quadrants. No masses or hepatosplenomegaly. There is a midline vertical scar w ith bulging hernia noted bilaterally Extremities: no BLE edema, nontender calf, no cyanosis or clubbing Skin: Normal temperature, turgor and texture; no rash, ulcers or subcutaneous nodules - Assessment and Plan (1) Bowel obstruction Current Visit: Yes Status: Acute Assessment and Plan: Bowel obstruction involving the large and small intestine as noted on CT abdomen Patient does have history of small and large bowel obstruction the past r equiring surgical correction Surgery was consulted from the ED, notes that surgery was completed in 1998 in 1999 at [facility] and patient does have hostile abdomen Per surgery recommendation, place NG tube with bowel rest Plan for small bowel follow-through in 72 hours Nothing by mouth IV fluids with D5 0.45 nacl (2) CAD (coronary artery disease) Current Visit: Yes Status: Acute Assessment and Plan: CAD s/p PCI 7-8 years ago EKG in ED shows nonspecific ST-T wave changes, will need to compare to old EKG Request records from [facility] ED Echo shows LVEF 55-60% with mild LVDD but otherwise normal (3) Hypertension Current Visit: Yes Status: Acute Assessment and Plan: Monitor BP (4) COPD (chronic obstructive pulmonary disease) Current Visit: Yes Status: Acute Assessment and Plan: Suspect severe COPD, on brochodilators at home however unknown which ones On home O2 at night at 2L Will start advair, duonebs as needed Continous O2 monitoring Titrate O2 to 88-92% (5) Preop cardiovascular exam Current Visit: Yes Status: Acute Assessment and Plan: RCRI score 1, Class II risk, 6% 30 day mortality risk EKG has nonspecific ST-T wave changes Echo is relatively unremarkable, appears safe for anesthesia Risk may be higher associated with pulmonary function given COPD (6) Tobacco abuse Current Visit: Yes Status: Chronic Assessment and Plan: Nicotine patch (7) Incisional hernia Current Visit: Yes Status: Chronic (8) DVT prophylaxis Current Visit: Yes Status: Acute Assessment and Plan: SQ Heparin - Time Spent with Patient Total time spent is greater than 50% in coordination of care (as documented) at patient's floor/unit and/or counseling patient: Internal Medicine: Result - Labs CBC & Chem 7: 09/24/18 04:43 09/24/18 04:43 Labs: Short CBC 09/23/18 09/24/18 Range/Units 13:28 04:43 WBC 10.9 8.2 (4.3-11.1) K/mcL Hgb 16.0 H 14.8 (11.5-15.4) g/dL Hct 49.9 H 46.7 H (35.3-44.9) % Plt Count 246 228 (140-400) K/mcL Neutrophils # 8.9 5.4 (1.6-8.9) K/mcL BMP 09/23/18 09/24/18 13:28 04:43 Sodium 138 138 Potassium 4.1 3.9 Chloride 98 101 Carbon Dioxide 33 H 31 H BUN 18 23 Creatinine 1.07 1.08 Glucose 128 H 140 H Calcium 9.3 9.0 Cardiac Enzymes 09/23/18 Range/Units 13:28 Troponin I < 0.03 (< 0.04) ng/mL Liver Function 09/23/18 09/24/18 Range/Units 13:28 04:43 Total Bilirubin 0.9 0.6 (0.3-1.0) mg/dL Direct Bilirubin 0.2 (0.0-0.2) mg/dL AST 81 H 49 H (13-39) Units/L ALT 79 H 61 H (7-52) Units/L Alkaline Phosphatase 107 H 95 (34-104) Units/L Albumin 4.0 3.7 (3.5-5.7) g/dL Urine 09/23/18 Range/Units 16:05 Urine Color Dark Yellow (Yellow) Urine Clarity Turbid A (Clear) Urine pH 7.5 (5.0-8.0) pH Units Ur Specific [place] 1.023 (1.010-1.025) Urine Protein 30 H (Neg-Trace) mg/dL Urine Glucose (UA) Normal (Normal) mg/dL - ABG Interpretation ABG results: PT/INR, D-dimer PT 11.3 Seconds (9.4-12.1) 09/24/18 04:43 - Impressions Impressions Abdomen/Pelvis CT 09/23/18 13:28 IMPRESSION: Findings compatible with bowel obstruction involving both large and small bowel with transition point in region of anastomotic sutures of rectosigmoid junction. Superimposed colonic diverticulosis without evidence for diverticulitis. Superimposed large ventral abdominal hernia which contains both loops of large and small bowel. This does not appear to be contributing to the bowel obstruction. No evidence for strangulation or incarceration identified. Additional incidental findings as above, none of which require dedicated imaging follow-up. D/ / 09/23/2018 14:19:29 Jae Rodriguez MD / stan Interpreting Provider: Jae Rodriguez MD Echocardiogram 09/23/18 15:44 Impressions: LVEF 55-60%. Mild left ventricular diastolic dysfunction. Normal right ventricular size and function. No significant valvular dysfunction. No evidence of pulmonary hypertension. Left Ventricular Wall Motion: Rest Echo Findings All wall segments showed normal motion. Findings: Study Quality * Technically adequate exam. ECG Findings * Normal sinus rhythm. Left Ventricle * LVEF 55-60%. * Normal LV chamber size, wall thickness and systolic function. * Mild left ventricular diastolic dysfunction. Right Ventricle * Normal right ventricular structure and function. Left Atrium * Normal left atrial size. Right Atrium * Normal right atrial size. Interatrial Septum * Interatrial septum not well evaluated. * No evidence of PFO by color Doppler. Aortic Valve * Trileaflet aortic valve with normal function. * No aortic stenosis. * No aortic regurgitation. Mitral Valve * Normal mitral valve structure. * No mitral stenosis. * Trace mitral regurgitation. Tricuspid Valve * Normal tricuspid valve structure and function. * No tricuspid stenosis. * No tricuspid regurgitation. * Unable to estimate RVSP due to lack of TR jet. * No evidence of pulmonary hypertension. * Estimated RA pressure is 3 mmHg. Pulmonic Valve * Pulmonic valve is not well visualized. * No pulmonic stenosis. * No pulmonic regurgitation. Aorta * Normally sized aortic root. Pericardium * The pericardium appears normal. IVC * The IVC is not dilated. * > 50% respiratory change KUB X-Ray 09/23/18 22:26 IMPRESSION: The enteric tube remains within the esophagus. The tube needs to be advanced 15 cm. D/ / Leo Chester MD / Leo Chester MD Interpreting Provider: Leo Chester MD X-Ray 09/24/18 00:15 IMPRESSION: 1. Nasogastric tube with its tip in the body of the stomach. D/ / Jaziel Galan MD / Jaziel Galan MD Interpreting Provider: Jaziel Galan MD <Marlon Rothman - Last Filed: 09/24/18 19:12> (1) Bowel obstruction Qualifiers: Intestinal obstruction type: unspecified Intestinal obstruction extent: unspecified extent Qualified Code(s): K56.609 - Unspecified intestinal obstruction, unspecified as to partial versus complete obstruction (2) CAD (coronary artery disease) Qualifiers: Coronary Disease-Associated Artery/Lesion type: [place] artery [place] vs. transplanted heart: ch[place]koot heart Associated angina: without angina Qualified Code(s): I25.10 - Atherosclerotic heart disease of [place] coronary artery without angina pectoris (3) Hypertension Qualifiers: Hypertension type: essential hypertension Qualified Code(s): I10 - Essential (primary) hypertension (5) COPD (chronic obstructive pulmonary disease) Qualifiers: COPD type: chronic bronchitis Chronic bronchitis type: simple Qualified Code(s): J41.0 - Simple chronic bronchitis (8) Incisional hernia Qualifiers: Obstruction and gangrene presence: without obstruction or gangrene Qualified Code(s): K43.2 - Incisional hernia without obstruction or gangrene; K43.91 - Incisional hernia, without obstruction or gangrene <Turner Khan - Last Filed: 09/24/18 19:28> (1) Bowel obstruction Qualifiers: Intestinal obstruction type: unspecified Intestinal obstruction extent: unspecified extent Qualified Code(s): K56.609 - Unspecified intestinal obstruction, unspecified as to partial versus complete obstruction (2) CAD (coronary artery disease) Qualifiers: Coronary Disease-Associated Artery/Lesion type: [place] artery [place] vs. transplanted heart: ch[place] heart Associated angina: without angina Qualified Code(s): I25.10 - Atherosclerotic heart disease of [place] coronary artery without angina pectoris (3) Hypertension Qualifiers: Hypertension type: essential hypertension Qualified Code(s): I10 - Essential (primary) hypertension (4) COPD (chronic obstructive pulmonary disease) Qualifiers: COPD type: chronic bronchitis Chronic bronchitis type: simple Qualified Code(s): J41.0 - Simple chronic bronchitis (7) Incisional hernia Qualifiers: Obstruction and gangrene presence: without obstruction or gangrene Qualified Code(s): K43.2 - Incisional hernia without obstruction or gangrene; K43.91 - Incisional hernia, without obstruction or gangrene
[2018-09-24] MEDS: Nicotine 21 MG PATCH.TD24 TD SCH (09:42)
[2018-09-24] MEDS: D5% in 0.45% NACL 1,000 ML IVC SCH (09:44)
[2018-09-24] MEDS ORDERED: Chloraseptic Spray 177 ML BOTTLE MM PRN (11:10)
[2018-09-24] MEDS ORDERED: D10% in Water 500 ML IVC PRN (14:47)
[2018-09-24] MEDS ORDERED: Clinimix E 5%-15% SOLUTION 2,000 ML with MVI, adult with vitamin K 10 ML IVC SCH (17:00)
[2018-09-24] MEDS ORDERED: Insulin LISPRO 300 UNITS/3 ML VIAL SQ SCH (18:00)
[2018-09-25] MEDS: Insulin LISPRO 300 UNITS/3 ML VIAL SQ SCH ×8 (03:37→23:51)
[2018-09-25] MEDS: *HR* Heparin 5,000 UNIT/ML VIAL SQ SCH ×3 (04:29→21:57)
[2018-09-25] MEDS: D5% in 0.45% NACL 1,000 ML IVC SCH ×4 (04:29→17:20)
[2018-09-25] MEDS: OXYCODONE Oral CONC 10 MG/0.5 ML ORAL.SYG SL PRN ×2 (04:49→19:44)
[2018-09-25 04:58] LABS: VBG Ionized Calcium 1.12 mmol/L (1.15-1.35)
[2018-09-25 05:17] LABS: BUN/Creatinine Ratio 18 (6-26); Blood Urea Nitrogen 16 mg/dL (8-23); Calcium 8.7 mg/dL (8.6-10.3); Carbon Dioxide 31 mEq/L (23-29); Chloride 103 mEq/L (98-107); Glucose 118 mg/dL (70-105); Magnesium 1.8 mg/dL (1.6-2.6); Osmolality,Calculated 284 (280-300); Potassium 3.9 mEq/L (3.5-5.1); Sodium 136 mEq/L (136-145); Triglycerides 150 mg/dL (< 150); eGFR For Non-African Americans > 60 (> 60)
[2018-09-25] MEDS: Budesonide/Formoterol 80/4.5 MDI IH SCH ×2 (07:48→21:56)
[2018-09-25] MEDS: Pantoprazole 40 MG VIAL IVP SCH (08:31)
[2018-09-25] MEDS: Ondansetron 4 MG/2 ML VIAL IVP PRN ×2 (08:31→17:39)
[2018-09-25] MEDS: Nicotine 21 MG PATCH.TD24 TD SCH (08:32)
--- NOTE | 2018-09-25 10:54 | AcuteCareSurgery Progress Note ---
Date of Encounter: 09/25/18 Time of Encounter: 10:54 Subjective Patient reports: no new complaints, feels better, flatus, bowel movement Objective Vital Signs - Last 8 Hours Temp Pulse Resp BP Pulse Ox 09/25/18 07:48 16 93 09/25/18 06:30 98.8 F 69 16 144/85 96 Intake and Output 09/24/18 09/25/18 09/25/18 23:59 07:59 15:59 Intake Total 1000 / 1999 250 / 250 Output Total 850 / 850 Balance 1000 / 1450 -600 / -600 Intake: IV Fluids 1000 / 1999 250 / 250 D5% And 0.45% Nacl 1000 Ml Bag 1000 / 1999 1,000 ML @ 100 mls/hr IVC .Q10H [facility] Rx#:[id number] Intralipid 20% 250 ML @ 21 mls/ 250 / 250 hr IVPB DAILY@1700 [facility] Rx#: [id number] Oral 0 / 0 Output: Urine 300 / 300 Gastric Drainage 550 / 550 Other: Meal NPO Stool Size Moderate Stool Consistency loose # Voids 1 # Bowel Movements 1 Blood Glucose* 105 135 127 - General physical appearance no distress - Respiratory normal expansion, normal respiratory effort - Cardiovascular Cardiovascular exam: Present: RRR - Abdomen Abdomen: Present: soft, non tender, distended (non distended on my exam) - Neurologic CN 2-12 grossly intact - Psychiatric oriented to time, oriented to person, oriented to place - Labs 09/24/18 04:43 09/25/18 04:30 Diabetes panel 09/25/18 Range/Units 04:30 Sodium 136 (136-145) mEq/L Potassium 3.9 (3.5-5.1) mEq/L Chloride 103 (98-107) mEq/L Carbon Dioxide 31 H (23-29) mEq/L BUN 16 (8-23) mg/dL Creatinine 0.90 (0.60-1.20) mg/dL Glucose 118 H (70-105) mg/dL Calcium 8.7 (8.6-10.3) mg/dL Triglycerides 150 H (< 150) mg/dL Calcium panel 09/25/18 Range/Units 04:30 Calcium 8.7 (8.6-10.3) mg/dL Phosphorus 2.0 L (2.7-4.5) mg/dL Pituitary panel 09/25/18 Range/Units 04:30 Sodium 136 (136-145) mEq/L Potassium 3.9 (3.5-5.1) mEq/L Chloride 103 (98-107) mEq/L Carbon Dioxide 31 H (23-29) mEq/L BUN 16 (8-23) mg/dL Creatinine 0.90 (0.60-1.20) mg/dL Glucose 118 H (70-105) mg/dL Calcium 8.7 (8.6-10.3) mg/dL Adrenal panel 09/25/18 Range/Units 04:30 Sodium 136 (136-145) mEq/L Potassium 3.9 (3.5-5.1) mEq/L Chloride 103 (98-107) mEq/L Carbon Dioxide 31 H (23-29) mEq/L BUN 16 (8-23) mg/dL Creatinine 0.90 (0.60-1.20) mg/dL Glucose 118 H (70-105) mg/dL Calcium 8.7 (8.6-10.3) mg/dL Consult Discharge Plan - Plan Referrals: NONE,PCP [Primary Care Provider] - - Attending Attestation patient seen and examined. i have reviewed all labs, imaging and notes pertinent to this case. I have discussed the case in detail with the resident. i agree with the above assessment and plan and wish to add the following... NPO IVF NG tube: clamp x 4hrs then call with residuals cont TPN replace electrolytes activity as tolerated will continue to follow
--- NOTE | 2018-09-25 11:00 | Internal Med Progress Note ---
<Turner Khan - Last Filed: 09/25/18 10:52> Hospitalist Progress Note - Encounter Date of Encounter: 09/25/18 Time of Encounter: 10:20 - Subjective Interval History: Patient resting comfortably in bed at time of exam. She is passing gas and having some bowel movements still. She does complain of some abdominal pain, and continues to have a sore throat. She otherwise feels okay overall. - Exam Vitals: Temp Pulse Resp BP Pulse Ox 98.8 F 69 16 144/85 93 09/25/18 06:30 09/25/18 06:30 09/25/18 07:48 09/25/18 06:30 09/25/18 07:48 Exam: Gen: Vitals noted. No acute distress but appears very uncomfortable HENT: Atraumatic; oropharynx clear with dry membranes and no mucosal ulcerations; normal hard and soft palate. NG tube in place. Pulmonary: Diffusely wheezy to auscultation bilaterally Abdomen: soft, tender to deep palpation. Hypoactive bowel sounds noted in all 4 quadrants. No masses or hepatosplenomegaly. There is a midline vertical scar with bulging hernia noted bilaterally. Minimally more distended than previously. Extremities: no BLE edema, nontender calf, no cyanosis or clubbing Skin: Normal temperature, turgor and texture; no rash, ulcers or subcutaneous nodules - Assessment and Plan (1) Bowel obstruction Current Visit: Yes Status: Acute Assessment and Plan: Bowel obstruction involving the large and small intestine as noted on CT abdomen Patient does have history of small and large bowel obstruction the past requiring surgical correction Surgery was consulted from the ED, notes that surgery was completed in 1998 in 1999 at [facility] and patient does have hostile abdomen Per surgery recommendation, place NG tube with bowel rest Plan for small bowel follow-through tomorrow per surgery Nothing by mouth Pt was started on TPN (2) CAD (coronary artery disease) Current Visit: Yes Status: Acute Assessment and Plan: CAD s/p PCI 7-8 years ago EKG in ED shows nonspecific ST-T wave changes, will need to compare to old EKG Request records from [facility] Echo shows LVEF 55-60% with mild LVDD but otherwise normal (3) Hypertension Current Visit: Yes Status: Acute Assessment and Plan: Monitor BP (4) COPD (chronic obstructive pulmonary disease) Current Visit: Yes Status: Acute Assessment and Plan: Suspect severe COPD, on brochodilators at home however unknown which ones On home O2 at night at 2L Will start josiane suero as needed Continous O2 monitoring Titrate O2 to 88-92% (5) Preop cardiovascular exam Current Visit: Yes Status: Acute Assessment and Plan: RCRI score 1, Class II risk, 6% 30 day mortality risk EKG has nonspecific ST-T wave changes Echo is relatively unremarkable, appears safe for anesthesia Risk may be higher associated with pulmonary function given COPD (6) Tobacco abuse Current Visit: Yes Status: Chronic Assessment and Plan: Nicotine patch (7) DVT prophylaxis Current Visit: Yes Status: Acute Assessment and Plan: SQ Heparin (8) Incisional hernia Current Visit: Yes Status: Chronic - Time Spent with Patient Total time spent is greater than 50% in coordination of care (as documented) at patient's floor/unit and/or counseling patient: Internal Medicine: Result - Labs CBC & Chem 7: 09/24/18 04:43 09/25/18 04:30 Labs: BMP 09/25/18 04:30 Sodium 136 Potassium 3.9 Chloride 103 Carbon Dioxide 31 H BUN 16 Creatinine 0.90 Glucose 118 H Calcium 8.7 - ABG Interpretation ABG results: PT/INR, D-dimer PT 11.3 Seconds (9.4-12.1) 09/24/18 04:43 Consult Discharge Plan - Plan Referrals: NONE,PCP [Primary Care Provider] - <Marlon Rothman - Last Filed: 09/25/18 16:55> Hospitalist Progress Note - Encounter Date of Encounter: 09/25/18 - Exam Vitals: Temp Pulse Resp BP Pulse Ox 98.2 F 66 16 146/86 94 09/25/18 11:42 09/25/18 11:42 09/25/18 11:42 09/25/18 11:42 09/25/18 11:42 - Assessment and Plan (1) Bowel obstruction Current Visit: Yes Status: Acute (2) CAD (coronary artery disease) Current Visit: Yes Status: Acute (3) Hypertension Current Visit: Yes Status: Acute (4) DVT prophylaxis Current Visit: Yes Status: Acute (5) COPD (chronic obstructive pulmonary disease) Current Visit: Yes Status: Acute (6) Preop cardiovascular exam Current Visit: Yes Status: Acute (7) Tobacco abuse Current Visit: Yes Status: Chronic (8) Incisional hernia Current Visit: Yes Status: Chronic - Time Spent with Patient Total time spent is greater than 50% in coordination of care (as documented) at patient's floor/unit and/or counseling patient: Internal Medicine: Result - Labs CBC & Chem 7: 09/24/18 04:43 09/25/18 04:30 Labs: BMP 09/25/18 04:30 Sodium 136 Potassium 3.9 Chloride 103 Carbon Dioxide 31 H BUN 16 Creatinine 0.90 Glucose 118 H Calcium 8.7 - ABG Interpretation ABG results: PT/INR, D-dimer PT 11.3 Seconds (9.4-12.1) 09/24/18 04:43 - Attending Attestation I examined this patient and my medical decision-making was reviewed with the Resident Physician on 09/25/18. I agree with the documented findings, disposition and treatment plan as described except to the extent set forth below. Ms Chilel is currently admitted for acute bowel obstruction. She remains moderate to high risk due to potential for worsening clinical status. Ms Chilel is feeling OK. She is on TPN now. No fever or chills. Sore throat present. Still with BMs. Exam alert comfortable Mucus membranes dry Heart not tachy No wheeze at this time Abd distended. Soft. No edema I/P 1. Bowel obstruction - per surgical service 2. probable COPD - stable currently 3. Hernia Further diagnoses and plan as above. _ <Turner Khan - Last Filed: 09/25/18 10:52> (1) Bowel obstruction Qualifiers: Intestinal obstruction type: unspecified Intestinal obstruction extent: unspecified extent Qualified Code(s): K56.609 - Unspecified intestinal obstruction, unspecified as to partial versus complete obstruction (2) CAD (coronary artery disease) Qualifiers: Coronary Disease-Associated Artery/Lesion type: [place] artery [place] vs. transplanted heart: [place] heart Associated angina: without angina Qualified Code(s): I25.10 - Atherosclerotic heart disease of [place] coronary artery without angina pectoris (3) Hypertension Qualifiers: Hypertension type: essential hypertension Qualified Code(s): I10 - Essential (primary) hypertension (4) COPD (chronic obstructive pulmonary disease) Qualifiers: COPD type: chronic bronchitis Chronic bronchitis type: simple Qualified Code(s): J41.0 - Simple chronic bronchitis (8) Incisional hernia Qualifiers: Obstruction and gangrene presence: without obstruction or gangrene Qualified Code(s): K43.2 - Incisional hernia without obstruction or gangrene; K43.91 - Incisional hernia, without obstruction or gangrene <Marlon Rothman - Last Filed: 09/25/18 16:55> (1) Bowel obstruction Qualifiers: Intestinal obstruction type: unspecified Intestinal obstruction extent: unspecified extent Qualified Code(s): K56.609 - Unspecified intestinal obstruction, unspecified as to partial versus complete obstruction (2) CAD (coronary artery disease) Qualifiers: Coronary Disease-Associated Artery/Lesion type: [place] artery [place] vs. transplanted heart: [place] heart Associated angina: without angina Qualified Code(s): I25.10 - Atherosclerotic heart disease of [place] coronary artery without angina pectoris (3) Hypertension Qualifiers: Hypertension type: essential hypertension Qualified Code(s): I10 - Essential (primary) hypertension (5) COPD (chronic obstructive pulmonary disease) Qualifiers: COPD type: chronic bronchitis Chronic bronchitis type: simple Qualified Code(s): J41.0 - Simple chronic bronchitis (8) Incisional hernia Qualifiers: Obstruction and gangrene presence: without obstruction or gangrene Qualified Code(s): K43.2 - Incisional hernia without obstruction or gangrene; K43.91 - Incisional hernia, without obstruction or gangrene
[2018-09-25] MEDS ORDERED: Clinimix E 5%-15% SOLUTION 2,000 ML with MVI, adult with vitamin K 10 ML IVC SCH (17:00)
[2018-09-26 03:43] LABS: VBG Ionized Calcium 1.14 mmol/L (1.15-1.35)
[2018-09-26 04:01] LABS: BUN/Creatinine Ratio 19 (6-26); Blood Urea Nitrogen 15 mg/dL (8-23); Calcium 8.4 mg/dL (8.6-10.3); Carbon Dioxide 29 mEq/L (23-29); Chloride 103 mEq/L (98-107); Glucose 119 mg/dL (70-105); Magnesium 1.8 mg/dL (1.6-2.6); Osmolality,Calculated 286 (280-300); Phosphorous 3.1 mg/dL (2.7-4.5); Potassium 3.1 mEq/L (3.5-5.1); Sodium 137 mEq/L (136-145); eGFR For Non-African Americans > 60 (> 60)
[2018-09-26] MEDS: Insulin LISPRO 300 UNITS/3 ML VIAL SQ SCH ×5 (04:23→20:52)
[2018-09-26] MEDS: *HR* Heparin 5,000 UNIT/ML VIAL SQ SCH ×3 (05:06→20:52)
[2018-09-26] MEDS: D5% in 0.45% NACL 1,000 ML IVC SCH ×3 (07:34→20:54)
[2018-09-26] MEDS ORDERED: Potassium Chloride 40 MEQ, Lidocaine 1% 2 ML in D5% in Water 500 ML IVPB ONE (07:37)
[2018-09-26] MEDS: Budesonide/Formoterol 80/4.5 MDI IH SCH ×2 (07:41→20:00)
[2018-09-26] MEDS: Pantoprazole 40 MG VIAL IVP SCH (09:51)
[2018-09-26] MEDS: Nicotine 21 MG PATCH.TD24 TD SCH (09:51)
[2018-09-26] MEDS: Ondansetron 4 MG/2 ML VIAL IVP PRN (10:08)
--- NOTE | 2018-09-26 11:42 | AcuteCareSurgery Progress Note ---
<Brennan Maravilla N - Last Filed: 09/26/18 11:39> Date of Encounter: 09/26/18 Time of Encounter: 09:00 - Assessment and Plan (1) Bowel obstruction Current Visit: Yes Status: Acute Patient removed her NG tube Start clear liquid diet Qualifiers: Intestinal obstruction type: unspecified Intestinal obstruction extent: unspecified extent Qualified Code(s): K56.609 - Unspecified intestinal obstruction, unspecified as to partial versus complete obstruction Subjective Narrative: No new complaints, NG tube out Objective Vital Signs - Last 8 Hours Temp Pulse Resp BP Pulse Ox 09/26/18 10:44 97.8 F 72 15 150/85 96 09/26/18 07:44 18 95 09/26/18 07:07 98.5 F 79 15 190/87 95 09/26/18 04:09 98.7 F 69 15 154/85 93 Intake and Output 09/25/18 09/26/18 09/26/18 23:59 07:59 15:59 Intake Total 2232 / 2754 250 / 490 240 / 490 Output Total 0 / 850 800 / 800 Balance 2232 / 1904 -550 / -310 240 / -310 Intake: IV Fluids 2232 / 2754 250 / 250 D5% And 0.45% Nacl 1000 Ml Bag 728 / 1000 1,000 ML @ 100 mls/hr IVC .Q10H [facility] Rx#:[id number] Clinimix E 5%-15% SOLUTION 2, 1140 / 1140 000 ML @ 50 mls/hr IVC .Q24H ARAC[facility]I with M.v.i. Adult 10 ml Rx# :[id number] Intralipid 20% 250 ML @ 21 mls/ 250 / 250 hr IVPB DAILY@1700 [facility] Rx#: [id number] Magnesium Sulfate 2 GM In 0.9 % 104 / 104 Sodium Chloride 100 ML @ 104 mls/hr IVPB ONCE ONE Rx#: [id number] Sodium Phosphate 30 MMOL In 0.9 260 / 260 % Sodium Chloride 250 ML @ 42 mls/hr IVPB ONCE ONE Rx#: [id number] Oral 0 / 0 0 / 240 240 / 240 Output: Urine 0 / 300 0 / 0 Gastric Drainage 800 / 800 Other: Stool Size Large Small Stool Consistency liquid loose liquid Stool Color Brown Brown Green # Voids 1 3 # Bowel Movements 1 3 Weight 89.9 kg Blood Glucose* 149 115 117 Patient Weight 09/26/18 23:59 Weight 89.9 kg - General physical appearance no distress - Neck Neck exam: trachea midline, no venous distension - Respiratory clear to auscultation - Cardiovascular Cardiovascular exam: Present: RRR. Absent: murmurs - Abdomen Abdomen: Present: soft, non tender - Integumentary no rash - Musculoskeletal normal posture - Labs 09/24/18 04:43 09/26/18 03:20 Diabetes panel 09/26/18 Range/Units 03:20 Sodium 137 (136-145) mEq/L Potassium 3.1 L (3.5-5.1) mEq/L Chloride 103 (98-107) mEq/L Carbon Dioxide 29 (23-29) mEq/L BUN 15 (8-23) mg/dL Creatinine 0.79 (0.60-1.20) mg/dL Glucose 119 H (70-105) mg/dL Calcium 8.4 L (8.6-10.3) mg/dL Calcium panel 09/26/18 Range/Units 03:20 Calcium 8.4 L (8.6-10.3) mg/dL Phosphorus 3.1 (2.7-4.5) mg/dL Pituitary panel 09/26/18 Range/Units 03:20 Sodium 137 (136-145) mEq/L Potassium 3.1 L (3.5-5.1) mEq/L Chloride 103 (98-107) mEq/L Carbon Dioxide 29 (23-29) mEq/L BUN 15 (8-23) mg/dL Creatinine 0.79 (0.60-1.20) mg/dL Glucose 119 H (70-105) mg/dL Calcium 8.4 L (8.6-10.3) mg/dL Adrenal panel 09/26/18 Range/Units 03:20 Sodium 137 (136-145) mEq/L Potassium 3.1 L (3.5-5.1) mEq/L Chloride 103 (98-107) mEq/L Carbon Dioxide 29 (23-29) mEq/L BUN 15 (8-23) mg/dL Creatinine 0.79 (0.60-1.20) mg/dL Glucose 119 H (70-105) mg/dL Calcium 8.4 L (8.6-10.3) mg/dL Consult Discharge Plan - Plan Referrals: NONE,PCP [Primary Care Provider] - <Mj Carlin - Last Filed: 09/26/18 16:40> Date of Encounter: 09/26/18 Objective Vital Signs - Last 8 Hours Temp Pulse Resp BP Pulse Ox 09/26/18 10:44 97.8 F 72 15 150/85 96 Intake and Output 09/26/18 09/26/18 09/26/18 07:59 15:59 23:59 Intake Total 250 / 970 720 / 970 Output Total 800 / 800 Balance -550 / 170 720 / 170 Intake: IV Fluids 250 / 250 Intralipid 20% 250 ML @ 21 mls/ 250 / 250 hr IVPB DAILY@1700 [facility] Rx#: [id number] Oral 0 / 720 720 / 720 Output: Urine 0 / 0 Gastric Drainage 800 / 800 Other: Meal clears Percent of Meal Consumed 0% Stool Size Small Stool Consistency loose liquid Stool Color Brown # Voids 3 # Bowel Movements 3 Weight 89.9 kg Blood Glucose* 115 117 Patient Weight 09/26/18 23:59 Weight 89.9 kg - Labs 09/24/18 04:43 09/26/18 03:20 Diabetes panel 09/26/18 Range/Units 03:20 Sodium 137 (136-145) mEq/L Potassium 3.1 L (3.5-5.1) mEq/L Chloride 103 (98-107) mEq/L Carbon Dioxide 29 (23-29) mEq/L BUN 15 (8-23) mg/dL Creatinine 0.79 (0.60-1.20) mg/dL Glucose 119 H (70-105) mg/dL Calcium 8.4 L (8.6-10.3) mg/dL Calcium panel 09/26/18 Range/Units 03:20 Calcium 8.4 L (8.6-10.3) mg/dL Phosphorus 3.1 (2.7-4.5) mg/dL Pituitary panel 09/26/18 Range/Units 03:20 Sodium 137 (136-145) mEq/L Potassium 3.1 L (3.5-5.1) mEq/L Chloride 103 (98-107) mEq/L Carbon Dioxide 29 (23-29) mEq/L BUN 15 (8-23) mg/dL Creatinine 0.79 (0.60-1.20) mg/dL Glucose 119 H (70-105) mg/dL Calcium 8.4 L (8.6-10.3) mg/dL Adrenal panel 09/26/18 Range/Units 03:20 Sodium 137 (136-145) mEq/L Potassium 3.1 L (3.5-5.1) mEq/L Chloride 103 (98-107) mEq/L Carbon Dioxide 29 (23-29) mEq/L BUN 15 (8-23) mg/dL Creatinine 0.79 (0.60-1.20) mg/dL Glucose 119 H (70-105) mg/dL Calcium 8.4 L (8.6-10.3) mg/dL - Attending Attestation I have personally seen and examined the patient. I have reviewed pertinent labs, imaging, progress notes, including this one. I have discussed the plan in thorough detail with the resident and nurse practitioner. I agree with the above assessment and plan.
--- NOTE | 2018-09-26 12:53 | Internal Med Progress Note ---
<Turner Khan - Last Filed: 09/26/18 12:51> Hospitalist Progress Note - Encounter Date of Encounter: 09/26/18 Time of Encounter: 11:40 - Subjective Interval History: The patient is resting comfortably in bed at time of examination. She has had her NG tube removed and she is feeling significantly better with less abdominal pain. She has had significant amounts of diarrhea throughout is that she is hardly able to make it to the bathroom in time. She otherwise has no acute complaints. - Exam Vitals: Temp Pulse Resp BP Pulse Ox 97.8 F 72 15 150/85 96 09/26/18 10:44 09/26/18 10:44 09/26/18 10:44 09/26/18 10:44 09/26/18 10:44 Exam: Gen: Vitals noted. No acute distress but appears very uncomfortable HENT: Atraumatic; oropharynx clear with dry membranes and no mucosal ulcerations; normal hard and soft palate. Pulmonary: Diffusely wheezy to auscultation bilaterally Abdomen: soft, tender to deep palpation. No masses or hepatosplenomegaly. There is a midline vertical scar with bulging hernia noted bilaterally. Improved distension Extremities: no BLE edema, nontender calf, no cyanosis or clubbing Skin: Normal temperature, turgor and texture; no rash, ulcers or subcutaneous nodules - Assessment and Plan (1) Bowel obstruction Current Visit: Yes Status: Acute Assessment and Plan: Bowel obstruction involving the large and small intestine as noted on CT abdomen Patient does have history of small and large bowel obstruction the past requiring surgical correction Surgery was consulted from the ED, notes that surgery was completed in 1998 in 1999 at [place] and patient does have hostile abdomen NG tube removed per surgery Pt started on liquid diet Continue to monitor (2) Diarrhea Current Visit: Yes Status: Acute Assessment and Plan: Diarrhea, unclear etiology Suspected functional diarrhea secondary to resolution of bowel obstruction Still, the patient could potentially have an enteritis in the setting of bowel obstruction We will continue to monitor it, consider infectious etiology if it continues (3) CAD (coronary artery disease) Current Visit: Yes Status: Acute Assessment and Plan: CAD s/p PCI 7-8 years ago EKG in ED shows nonspecific ST-T wave changes, will need to compare to old EKG Request records from [facility] Echo shows LVEF 55-60% with mild LVDD but otherwise normal (4) Hypertension Current Visit: Yes Status: Acute Assessment and Plan: Monitor BP (5) COPD (chronic obstructive pulmonary disease) Current Visit: Yes Status: Acute Assessment and Plan: Suspect severe COPD, on brochodilators at home however unknown which ones On home O2 at night at 2L Will start advair, duonebs as needed Continous O2 monitoring Titrate O2 to 88-92% (6) Preop cardiovascular exam Current Visit: Yes Status: Acute Assessment and Plan: RCRI score 1, Class II risk, 6% 30 day mortality risk EKG has nonspecific ST-T wave changes Echo is relatively unremarkable, appears safe for anesthesia Risk may be higher associated with pulmonary function given COPD (7) Tobacco abuse Current Visit: Yes Status: Chronic Assessment and Plan: Nicotine patch (8) Incisional hernia Current Visit: Yes Status: Chronic (9) DVT prophylaxis Current Visit: Yes Status: Acute Assessment and Plan: SQ Heparin (10) Hypokalemia Current Visit: Yes Status: Acute Assessment and Plan: Hypokalemia in the setting of diarrhea, potassium 3.1 Replete with IV potassium as the patient has previously been nothing by mouth - Time Spent with Patient Total time spent is greater than 50% in coordination of care (as documented) at patient's floor/unit and/or counseling patient: Internal Medicine: Result - Labs CBC & Chem 7: 09/24/18 04:43 09/26/18 03:20 Labs: BMP 09/26/18 03:20 Sodium 137 Potassium 3.1 L Chloride 103 Carbon Dioxide 29 BUN 15 Creatinine 0.79 Glucose 119 H Calcium 8.4 L - ABG Interpretation ABG results: PT/INR, D-dimer PT 11.3 Seconds (9.4-12.1) 09/24/18 04:43 Consult Discharge Plan - Plan Referrals: NONE,PCP [Primary Care Provider] - <Marlon Rothman - Last Filed: 09/26/18 13:59> Hospitalist Progress Note - Encounter Date of Encounter: 09/26/18 - Exam Vitals: Temp Pulse Resp BP Pulse Ox 97.8 F 72 15 150/85 96 09/26/18 10:44 09/26/18 10:44 09/26/18 10:44 09/26/18 10:44 09/26/18 10:44 - Assessment and Plan (1) Bowel obstruction Current Visit: Yes Status: Acute (2) CAD (coronary artery disease) Current Visit: Yes Status: Acute (3) Hypertension Current Visit: Yes Status: Acute (4) DVT prophylaxis Current Visit: Yes Status: Acute (5) COPD (chronic obstructive pulmonary disease) Current Visit: Yes Status: Acute (6) Preop cardiovascular exam Current Visit: Yes Status: Acute (7) Tobacco abuse Current Visit: Yes Status: Chronic (8) Incisional hernia Current Visit: Yes Status: Chronic (9) Diarrhea Current Visit: Yes Status: Acute (10) Hypokalemia Current Visit: Yes Status: Acute - Time Spent with Patient Total time spent is greater than 50% in coordination of care (as documented) at patient's floor/unit and/or counseling patient: Internal Medicine: Result - Labs CBC & Chem 7: 09/24/18 04:43 09/26/18 03:20 Labs: BMP 09/26/18 03:20 Sodium 137 Potassium 3.1 L Chloride 103 Carbon Dioxide 29 BUN 15 Creatinine 0.79 Glucose 119 H Calcium 8.4 L - ABG Interpretation ABG results: PT/INR, D-dimer PT 11.3 Seconds (9.4-12.1) 09/24/18 04:43 - Attending Attestation I examined this patient and my medical decision-making was reviewed with the Resident Physician on 09/26/18. I agree with the documented findings, disposition and treatment plan as described except to the extent set forth below. Ms Chilel is currently admitted for acute bowel obstruction. She remains moderate to high risk due to potential for worsening clinical status. Ms Chilel has NG out. She is having a lot of diarrhea but pain is less. No fever or chills. She thinks diarrhea is due to TPN. Tolerating some liquids. Exam alert Comfortable Mucus membranes dry Heart reg and not tachy No wheeze abd soft I/P 1. Bowel obstruction - NG out today. Tolerating liquids 2. Abd wall hernia 3. DM 4. Smoker Further diagnoses and plan as above. <Turner Khan - Last Filed: 09/26/18 12:51> (1) Bowel obstruction Qualifiers: Intestinal obstruction type: unspecified Intestinal obstruction extent: unspecified extent Qualified Code(s): K56.609 - Unspecified intestinal obstruction, unspecified as to partial versus complete obstruction (2) Diarrhea Qualifiers: Diarrhea type: functional diarrhea Qualified Code(s): K59.1 - Functional diarrhea (3) CAD (coronary artery disease) Qualifiers: Coronary Disease-Associated Artery/Lesion type: [place] artery [place] vs. transplanted heart: [place] heart Associated angina: without angina Qualified Code(s): I25.10 - Atherosclerotic heart disease of [place] coronary artery without angina pectoris (4) Hypertension Qualifiers: Hypertension type: essential hypertension Qualified Code(s): I10 - Essential (primary) hypertension (5) COPD (chronic obstructive pulmonary disease) Qualifiers: COPD type: chronic bronchitis Chronic bronchitis type: simple Qualified Code(s): J41.0 - Simple chronic bronchitis (8) Incisional hernia Qualifiers: Obstruction and gangrene presence: without obstruction or gangrene Qualified Code(s): K43.2 - Incisional hernia without obstruction or gangrene; K43.91 - Incisional hernia, without obstruction or gangrene <Marlon Rothman - Last Filed: 09/26/18 13:59> (1) Bowel obstruction Qualifiers: Intestinal obstruction type: unspecified Intestinal obstruction extent: unspecified extent Qualified Code(s): K56.609 - Unspecified intestinal obstruction, unspecified as to partial versus complete obstruction (2) CAD (coronary artery disease) Qualifiers: Coronary Disease-Associated Artery/Lesion type: [place] artery [place] vs. transplanted heart: [place] heart Associated angina: without angina Qualified Code(s): I25.10 - Atherosclerotic heart disease of [place] coronary artery without angina pectoris (3) Hypertension Qualifiers: Hypertension type: essential hypertension Qualified Code(s): I10 - Essential (primary) hypertension (5) COPD (chronic obstructive pulmonary disease) Qualifiers: COPD type: chronic bronchitis Chronic bronchitis type: simple Qualified Code(s): J41.0 - Simple chronic bronchitis (8) Incisional hernia Qualifiers: Obstruction and gangrene presence: without obstruction or gangrene Qualified Code(s): K43.2 - Incisional hernia without obstruction or gangrene; K43.91 - Incisional hernia, without obstruction or gangrene (9) Diarrhea Qualifiers: Diarrhea type: functional diarrhea Qualified Code(s): K59.1 - Functional diarrhea
[2018-09-26] MEDS ORDERED: Clinimix E 5%-15% SOLUTION 2,000 ML with MVI, adult with vitamin K 10 ML IVC SCH (17:00)
[2018-09-27] MEDS: Insulin LISPRO 300 UNITS/3 ML VIAL SQ SCH ×6 (00:39→21:55)
[2018-09-27 03:45] LABS: VBG Ionized Calcium 1.26 mmol/L (1.15-1.35)
[2018-09-27 03:55] LABS: BUN/Creatinine Ratio 21 (6-26); Blood Urea Nitrogen 16 mg/dL (8-23); Calcium 8.8 mg/dL (8.6-10.3); Carbon Dioxide 28 mEq/L (23-29); Chloride 105 mEq/L (98-107); Glucose 125 mg/dL (70-105); Magnesium 1.7 mg/dL (1.6-2.6); Osmolality,Calculated 283 (280-300); Phosphorous 3.2 mg/dL (2.7-4.5); Potassium 3.5 mEq/L (3.5-5.1); Sodium 135 mEq/L (136-145); eGFR For Non-African Americans > 60 (> 60)
[2018-09-27] MEDS: *HR* Heparin 5,000 UNIT/ML VIAL SQ SCH ×3 (04:31→22:02)
[2018-09-27] MEDS: Budesonide/Formoterol 80/4.5 MDI IH SCH ×3 (07:36→20:45)
[2018-09-27] MEDS: Ondansetron 4 MG/2 ML VIAL IVP PRN (08:22)
[2018-09-27] MEDS: Pantoprazole 40 MG VIAL IVP SCH (08:22)
[2018-09-27] MEDS: Nicotine 21 MG PATCH.TD24 TD SCH (08:22)
--- NOTE | 2018-09-27 08:47 | AcuteCareSurgery Progress Note ---
<Uyen Chaudhry - Last Filed: 09/27/18 08:44> Date of Encounter: 09/27/18 Time of Encounter: 08:00 - Assessment and Plan (1) Bowel obstruction Current Visit: Yes Status: Acute Pt removed NG 09/26/2018. She is tolerating a clear liquid diet without nausea or vomiting. She is having bowel movements. Advanced diet as tolerated surgery will sign off at this time. Thank you for allowing us to participate in Staci's care. Please call or reconsult if questions or needs arise. No surgical follow-up as needed Qualifiers: Intestinal obstruction type: unspecified Intestinal obstruction extent: unspecified extent Qualified Code(s): K56.609 - Unspecified intestinal obstruction, unspecified as to partial versus complete obstruction Subjective Patient reports: no new complaints, pain is less, voiding w/o difficulty, flatus, bowel movement, afebrile, other (states she is hungry) Objective Vital Signs - Last 8 Hours Temp Pulse Resp BP Pulse Ox 09/27/18 06:36 98.7 F 83 18 120/78 96 09/27/18 04:04 98.0 F 65 16 170/97 97 Intake and Output 09/26/18 09/27/18 09/27/18 23:59 07:59 15:59 Intake Total 2939 / 3909 0 / 0 Output Total 0 / 800 Balance 2939 / 3109 0 / 0 Intake: IV Fluids 2579 / 2829 D5% And 0.45% Nacl 1000 Ml Bag 1000 / 1000 1,000 ML @ 100 mls/hr IVC .Q10H ARACELI Rx#:[id number] Clinimix E 5%-15% SOLUTION 2, 1579 / 1579 000 ML @ 65 mls/hr IVC .Q24H ARACELI with M.v.i. Adult 10 ml Rx# :[id number] Oral 360 / 1080 0 / 0 Output: Urine 0 / 0 Other: Meal clears Stool Size Large Stool Consistency liquid Stool Color Brown Green # Voids 1 2 # Bowel Movements 1 2 Weight 93.213 kg Blood Glucose* 117 127 Patient Weight 09/27/18 23:59 Weight 93.213 kg - General physical appearance no distress - ENT atraumatic, normocephalic - Neck Neck exam: trachea midline - Respiratory normal expansion, normal respiratory effort, clear to auscultation - Cardiovascular Cardiovascular exam: Present: RRR - Abdomen Abdomen: Present: bowel sounds present, soft, non tender - Musculoskeletal normal posture - Psychiatric oriented to time, oriented to person, oriented to place, speech is normal - Labs 09/24/18 04:43 09/27/18 03:20 Diabetes panel 09/27/18 Range/Units 03:20 Sodium 135 L (136-145) mEq/L Potassium 3.5 (3.5-5.1) mEq/L Chloride 105 (98-107) mEq/L Carbon Dioxide 28 (23-29) mEq/L BUN 16 (8-23) mg/dL Creatinine 0.76 (0.60-1.20) mg/dL Glucose 125 H (70-105) mg/dL Calcium 8.8 (8.6-10.3) mg/dL Calcium panel 09/27/18 Range/Units 03:20 Calcium 8.8 (8.6-10.3) mg/dL Phosphorus 3.2 (2.7-4.5) mg/dL Pituitary panel 09/27/18 Range/Units 03:20 Sodium 135 L (136-145) mEq/L Potassium 3.5 (3.5-5.1) mEq/L Chloride 105 (98-107) mEq/L Carbon Dioxide 28 (23-29) mEq/L BUN 16 (8-23) mg/dL Creatinine 0.76 (0.60-1.20) mg/dL Glucose 125 H (70-105) mg/dL Calcium 8.8 (8.6-10.3) mg/dL Adrenal panel 09/27/18 Range/Units 03:20 Sodium 135 L (136-145) mEq/L Potassium 3.5 (3.5-5.1) mEq/L Chloride 105 (98-107) mEq/L Carbon Dioxide 28 (23-29) mEq/L BUN 16 (8-23) mg/dL Creatinine 0.76 (0.60-1.20) mg/dL Glucose 125 H (70-105) mg/dL Calcium 8.8 (8.6-10.3) mg/dL Consult Discharge Plan - Plan Referrals: NONE,PCP [Primary Care Provider] - <Sonia Link - Last Filed: 09/27/18 10:54> Date of Encounter: 09/27/18 Objective Vital Signs - Last 8 Hours Temp Pulse Resp BP Pulse Ox 09/27/18 10:31 98.4 F 80 16 141/84 96 09/27/18 06:36 98.7 F 83 18 120/78 96 09/27/18 04:04 98.0 F 65 16 170/97 97 Intake and Output 09/26/18 09/27/18 09/27/18 23:59 07:59 15:59 Intake Total 2939 / 3909 0 / 0 0 / 0 Output Total 0 / 800 Balance 2939 / 3109 0 / 0 0 / 0 Intake: IV Fluids 2579 / 2829 D5% And 0.45% Nacl 1000 Ml Bag 1000 / 1000 1,000 ML @ 100 mls/hr IVC .Q10H ARACELI Rx#:[id number] Clinimix E 5%-15% SOLUTION 2, 1579 / 1579 000 ML @ 65 mls/hr IVC .Q24H ARACELI with M.v.i. Adult 10 ml Rx# :[id number] Oral 360 / 1080 0 / 0 0 / 0 Output: Urine 0 / 0 Other: Meal clears Stool Size Large Small Stool Consistency liquid loose Stool Characteristics Normal for Patient Stool Color Brown Brown Green # Voids 1 2 1 # Bowel Movements 1 2 1 Weight 93.213 kg Blood Glucose* 117 127 149 Patient Weight 09/27/18 23:59 Weight 93.213 kg - Labs 09/24/18 04:43 09/27/18 03:20 Diabetes panel 09/27/18 Range/Units 03:20 Sodium 135 L (136-145) mEq/L Potassium 3.5 (3.5-5.1) mEq/L Chloride 105 (98-107) mEq/L Carbon Dioxide 28 (23-29) mEq/L BUN 16 (8-23) mg/dL Creatinine 0.76 (0.60-1.20) mg/dL Glucose 125 H (70-105) mg/dL Calcium 8.8 (8.6-10.3) mg/dL Calcium panel 09/27/18 Range/Units 03:20 Calcium 8.8 (8.6-10.3) mg/dL Phosphorus 3.2 (2.7-4.5) mg/dL Pituitary panel 09/27/18 Range/Units 03:20 Sodium 135 L (136-145) mEq/L Potassium 3.5 (3.5-5.1) mEq/L Chloride 105 (98-107) mEq/L Carbon Dioxide 28 (23-29) mEq/L BUN 16 (8-23) mg/dL Creatinine 0.76 (0.60-1.20) mg/dL Glucose 125 H (70-105) mg/dL Calcium 8.8 (8.6-10.3) mg/dL Adrenal panel 09/27/18 Range/Units 03:20 Sodium 135 L (136-145) mEq/L Potassium 3.5 (3.5-5.1) mEq/L Chloride 105 (98-107) mEq/L Carbon Dioxide 28 (23-29) mEq/L BUN 16 (8-23) mg/dL Creatinine 0.76 (0.60-1.20) mg/dL Glucose 125 H (70-105) mg/dL Calcium 8.8 (8.6-10.3) mg/dL - Attending Attestation I examined this patient and my medical decision-making was reviewed with the WIRE STRAIGHTENING MACHINE OPERATOR. I agree with the documented findings, disposition and treatment plan as described except to the extent set forth below.
[2018-09-27] MEDS ORDERED: Acetaminophen 325 MG TABLET PO PRN (10:02)
[2018-09-27] MEDS ORDERED: *HR* Promethazine 25 MG/ML VIAL IVP PRN (10:05)
[2018-09-27] MEDS ORDERED: Potassium Chloride 40 MEQ, Lidocaine 1% 2 ML in D5% in Water 500 ML IVPB ONE (11:02)
--- NOTE | 2018-09-27 13:41 | Internal Med Progress Note ---
<Turner Khan - Last Filed: 09/27/18 13:22> Hospitalist Progress Note - Encounter Date of Encounter: 09/27/18 Time of Encounter: 09:45 - Subjective Interval History: The patient is resting in bed at time of exam. She is very uncomfortable, and says that she is nauseated and having pain in her head and stomach. She has continued to have copious diarrhea. She says that it is not watery, however it is very loose and quite malodorous. She says that she has been able to tolerate fluids and some light substances. Otherwise no acute complaints. - Exam Vitals: Temp Pulse Resp BP Pulse Ox 98.4 F 80 16 141/84 96 09/27/18 10:31 09/27/18 10:31 09/27/18 10:31 09/27/18 10:31 09/27/18 10:31 Exam: Gen: Vitals noted. No acute distress but appears very uncomfortable HENT: Atraumatic; oropharynx clear with dry membranes and no mucosal ulcerations; normal hard and soft palate. Pulmonary: Diffusely wheezy to auscultation bilaterally Abdomen: soft, tender to deep palpation. No masses or hepatosplenomegaly. There is a midline vertical scar with bulging hernia noted bilaterally. Improved distension Extremities: no BLE edema, nontender calf, no cyanosis or clubbing Skin: Normal temperature, turgor and texture; no rash, ulcers or subcutaneous nodules - Assessment and Plan (1) Bowel obstruction Current Visit: Yes Status: Acute Assessment and Plan: Bowel obstruction involving the large and small intestine as noted on CT abdomen Patient does have history of small and large bowel obstruction the past r equiring surgical correction Surgery was consulted from the ED, notes that surgery was completed in 1998 in 1999 at [facility] and patient does have hostile abdomen NG tube removed per surgery, appears to be resolving at this time Pt started on liquid diet Surgery has signed off, no need for procedure Still continues to have nausea with urge to vomit Continue to monitor (2) Diarrhea Current Visit: Yes Status: Acute Assessment and Plan: Diarrhea, unclear etiology Suspected functional diarrhea secondary to resolution of bowel obstruction Still, the patient could potentially have an enteritis in the setting of bowel obstruction Given continued nature and patients complaint of nausea with headache and g eneralized malaise, I will order GI panel (3) CAD (coronary artery disease) Current Visit: Yes Status: Acute Assessment and Plan: CAD s/p PCI 7-8 years ago EKG in ED shows nonspecific ST-T wave changes, will need to compare to old EKG Request records from [place] ED Echo shows LVEF 55-60% with mild LVDD but otherwise normal (4) Hypertension Current Visit: Yes Status: Acute Assessment and Plan: Monitor BP, starting to rise. Possibly secondary to pain and increased fluids Will add back home meds (5) COPD (chronic obstructive pulmonary disease) Current Visit: Yes Status: Acute Assessment and Plan: Suspect severe COPD, on brochodilators at home however unknown which ones On home O2 at night at 2L Will start advair, duonebs as needed Continous O2 monitoring Titrate O2 to 88-92% (6) Tobacco abuse Current Visit: Yes Status: Chronic (7) Incisional hernia Current Visit: Yes Status: Chronic (8) DVT prophylaxis Current Visit: Yes Status: Acute Assessment and Plan: SQ Heparin (9) Hypokalemia Current Visit: Yes Status: Acute Assessment and Plan: Hypokalemia in the setting of diarrhea, potassium 3.5 today Replete with IV potassium as the patient has previously been nothing by mouth - Time Spent with Patient Total time spent is greater than 50% in coordination of care (as documented) at patient's floor/unit and/or counseling patient: Internal Medicine: Result - Labs CBC & Chem 7: 09/24/18 04:43 09/27/18 03:20 Labs: BMP 09/27/18 03:20 Sodium 135 L Potassium 3.5 Chloride 105 Carbon Dioxide 28 BUN 16 Creatinine 0.76 Glucose 125 H Calcium 8.8 - ABG Interpretation ABG results: PT/INR, D-dimer PT 11.3 Seconds (9.4-12.1) 09/24/18 04:43 Consult Discharge Plan - Plan Referrals: NONE,PCP [Primary Care Provider] - <Marlon Rothman - Last Filed: 09/27/18 14:43> Hospitalist Progress Note - Encounter Date of Encounter: 09/27/18 - Exam Vitals: Temp Pulse Resp BP Pulse Ox 98.4 F 80 16 141/84 96 09/27/18 10:31 09/27/18 10:31 09/27/18 10:31 09/27/18 10:31 09/27/18 10:31 - Assessment and Plan (1) Bowel obstruction Current Visit: Yes Status: Acute (2) CAD (coronary artery disease) Current Visit: Yes Status: Acute (3) Hypertension Current Visit: Yes Status: Acute (4) DVT prophylaxis Current Visit: Yes Status: Acute (5) COPD (chronic obstructive pulmonary disease) Current Visit: Yes Status: Acute (6) Tobacco abuse Current Visit: Yes Status: Chronic (7) Incisional hernia Current Visit: Yes Status: Chronic (8) Diarrhea Current Visit: Yes Status: Acute (9) Hypokalemia Current Visit: Yes Status: Acute - Time Spent with Patient Total time spent is greater than 50% in coordination of care (as documented) at patient's floor/unit and/or counseling patient: Internal Medicine: Result - Labs CBC & Chem 7: 09/24/18 04:43 09/27/18 03:20 Labs: BMP 09/27/18 03:20 Sodium 135 L Potassium 3.5 Chloride 105 Carbon Dioxide 28 BUN 16 Creatinine 0.76 Glucose 125 H Calcium 8.8 - ABG Interpretation ABG results: PT/INR, D-dimer PT 11.3 Seconds (9.4-12.1) 09/24/18 04:43 - Attending Attestation I examined this patient and my medical decision-making was reviewed with the Resident Physician on 09/27/18. I agree with the documented findings, disposition and treatment plan as described except to the extent set forth below. Ms Chilel is currently admitted for acute bowel obstruction. She remains moderate to high risk due to potential for worsening clinical status. Ms Chilel is resting at this time. No fever or chills. Having loose stool - not watery. No pain at this time but had some discomfort earlier. Exam alert Comfortable Mucus membranes dry Heart not tachy - regular No wheeze at this time Bowel sounds present No edema I/P 1. Bowel obstruction - appreciate surg input. Signed off today. 2. Diarrhea - checking stool panel 3. COPD Further diagnoses and plan as above. <BrendaguerlineTurner - Last Filed: 09/27/18 13:22> (1) Bowel obstruction Qualifiers: Intestinal obstruction type: unspecified Intestinal obstruction extent: unspecified extent Qualified Code(s): K56.609 - Unspecified intestinal ob struction, unspecified as to partial versus complete obstruction (2) Diarrhea Qualifiers: Diarrhea type: functional diarrhea Qualified Code(s): K59.1 - Functional diarrhea (3) CAD (coronary artery disease) Qualifiers: Coronary Disease-Associated Artery/Lesion type: [place] artery [place] vs. transplanted heart: [place] heart Associated angina: without angina Qualified Code(s): I25.10 - Atherosclerotic heart disease of [place] coronary artery without angina pectoris (4) Hypertension Qualifiers: Hypertension type: essential hypertension Qualified Code(s): I10 - Essential (primary) hypertension (5) COPD (chronic obstructive pulmonary disease) Qualifiers: COPD type: chronic bronchitis Chronic bronchitis type: simple Qualified Code(s): J41.0 - Simple chronic bronchitis (7) Incisional hernia Qualifiers: Obstruction and gangrene presence: without obstruction or gangrene Qualified Code(s): K43.2 - Incisional hernia without obstruction or gangrene; K43.91 - Incisional hernia, without obstruction or gangrene <Marlon Rothman - Last Filed: 09/27/18 14:43> (1) Bowel obstruction Qualifiers: Intestinal obstruction type: unspecified Intestinal obstruction extent: unsp ecified extent Qualified Code(s): K56.609 - Unspecified intestinal obstruction, unspecified as to partial versus complete obstruction (2) CAD (coronary artery disease) Qualifiers: Coronary Disease-Associated Artery/Lesion type: [place] artery [place] vs. transplanted heart: [place] heart Associated angina: without angina Qualified Code(s): I25.10 - Atherosclerotic heart disease of [place] coronary artery without angina pectoris (3) Hypertension Qualifiers: Hypertension type: essential hypertension Qualified Code(s): I10 - Essential (primary) hypertension (5) COPD (chronic obstructive pulmonary disease) Qualifiers: COPD type: chronic bronchitis Chronic bronchitis type: simple Qualified Code(s): J41.0 - Simple chronic bronchitis (7) Incisional hernia Qualifiers: Obstruction and gangrene presence: without obstruction or gangrene Qualified Code(s): K43.2 - Incisional hernia without obstruction or gangrene; K43.91 - Incisional hernia, without obstruction or gangrene (8) Diarrhea Qualifiers: Diarrhea type: functional diarrhea Qualified Code(s): K59.1 - Functional diarrhea
[2018-09-27] MEDS: D5% in 0.45% NACL 1,000 ML IVC SCH ×2 (17:55→23:32)
[2018-09-27 22:23] LABS: Adenovirus F 40/41 PCR Not detected (Not detect); Astrovirus PCR Not detected (Not detect); C.difficile Toxin A/B Gene PCR Not detected (Not detect); Campylobacter by PCR DETECTED (Not detect); Cryptosporidium by PCR Not detected (Not detect); Cyclospora cayetanensis PCR Not detected (Not detect); E. coli O157 by PCR Not detected (Not detect); Entamoeba histolytica PCR Not detected (Not detect); Enteroaggregative E.coli(EAEC) Not detected (Not detect); Enteropathogenic E.coli(EPEC) Not detected (Not detect); Enterotoxigenic E.coli (ETEC) Not detected (Not detect); Giardia lamblia PCR Not detected (Not detect); Norovirus GI/GII PCR Not detected (Not detect); Plesiomonas shigelloides PCR Not detected (Not detect); Rotavirus A PCR Not detected (Not detect); Salmonella PCR Not detected (Not detect); Sapovirus PCR Not detected (Not detect); Shig/EnteroinvasiveE coli EIEC Not detected (Not detect); Shigalike tox-prod E coli STEC Not detected (Not detect); Vibrio PCR Not detected (Not detect); Vibrio cholerae PCR Not detected (Not detect); Yersinia enterocolitica PCR Not detected (Not detect)
[2018-09-27] MEDS ORDERED: Azithromycin 500 MG in D5% in Water 250 ML IVPB SCH (23:00)
[2018-09-28] MEDS: Insulin LISPRO 300 UNITS/3 ML VIAL SQ SCH ×3 (01:29→09:08)
[2018-09-28 04:15] LABS: Basophils # 0.1 K/mcL (0.0-0.2); Basophils % 0.4 %; Eosinophils # 0.3 K/mcL (0.0-0.6); Eosinophils % 2.9 %; Hematocrit 42.1 % (35.3-44.9); Hemoglobin 13.8 g/dL (11.5-15.4); Immature Granulocytes % 1.1 % (0-4); Lymphocytes # 1.6 K/mcL (0.6-4.6); Lymphocytes % 14.5 %; Mean Corpuscular HGB Conc 32.8 g/dL (31.6-35.5); Mean Corpuscular Hemoglobin 30.4 pg (28.0-33.3); Mean Corpuscular Volume 92.7 fL (83.0-100.0); Mean Platelet Volume 10.1 fL (9.4-12.4); Monocytes # 1.4 K/mcL (0.0-1.3); Monocytes % 12.7 %; Neutrophils # 7.8 K/mcL (1.6-8.9); Platelet Count 211 K/mcL (140-400); Red Blood Count 4.54 M/mcL (3.82-4.97); Red Cell Distribution Width 15.4 % (11.5-14.5); Segmented Neutrophils % 68.4 %
[2018-09-28 04:30] LABS: BUN/Creatinine Ratio 19 (6-26); Blood Urea Nitrogen 14 mg/dL (8-23); Calcium 8.8 mg/dL (8.6-10.3); Carbon Dioxide 26 mEq/L (23-29); Chloride 106 mEq/L (98-107); Glucose 102 mg/dL (70-105); Osmolality,Calculated 289 (280-300); Potassium 3.8 mEq/L (3.5-5.1); Sodium 139 mEq/L (136-145); eGFR For Non-African Americans > 60 (> 60)
--- NOTE | 2018-09-28 04:42 | Event Note ---
Date of Encounter: 09/27/18 Time of Encounter: 22:26 Alerted by patient's nurse ANITA Regalado that GI panel had been sent down earlier and was positive for Campylobacter. IVPB azithromycin ordered and Lexapro and Zofran DC'd due to contraindication for QT prolongation with azithromycin. Nurse instructed to continue monitoring pt. very closely and alert me immediately of any adverse changes.
[2018-09-28] MEDS: *HR* Heparin 5,000 UNIT/ML VIAL SQ SCH ×3 (06:01→22:45)
[2018-09-28] MEDS: Budesonide/Formoterol 80/4.5 MDI IH SCH ×2 (07:36→20:31)
--- NOTE | 2018-09-28 08:45 | Internal Med Progress Note ---
<Marlon Rothman - Last Filed: 09/28/18 13:11> Hospitalist Progress Note - Encounter Date of Encounter: 09/28/18 - Exam Vitals: Temp Pulse Resp BP Pulse Ox 98.4 F 77 18 167/83 96 09/28/18 10:30 09/28/18 10:30 09/28/18 10:30 09/28/18 10:30 09/28/18 10:30 - Assessment and Plan (1) Campylobacter diarrhea Current Visit: Yes Status: Acute (2) Bowel obstruction Current Visit: Yes Status: Resolved (3) CAD (coronary artery disease) Current Visit: Yes Status: Chronic (4) Hypertension Current Visit: Yes Status: Chronic (5) DVT prophylaxis Current Visit: Yes Status: Acute (6) COPD (chronic obstructive pulmonary disease) Current Visit: Yes Status: Chronic (7) Tobacco abuse Current Visit: Yes Status: Chronic (8) Incisional hernia Current Visit: Yes Status: Chronic (9) Diarrhea Current Visit: Yes Status: Chronic (10) Hypokalemia Current Visit: Yes Status: Resolved - Time Spent with Patient Total time spent is greater than 50% in coordination of care (as documented) at patient's floor/unit and/or counseling patient: Internal Medicine: Result - Labs CBC & Chem 7: 09/28/18 03:45 09/28/18 03:45 Labs: Short CBC 09/28/18 Range/Units 03:45 WBC 11.3 H (4.3-11.1) K/mcL Hgb 13.8 (11.5-15.4) g/dL Hct 42.1 (35.3-44.9) % Plt Count 211 (140-400) K/mcL Neutrophils # 7.8 (1.6-8.9) K/mcL BMP 09/28/18 03:45 Sodium 139 Potassium 3.8 Chloride 106 Carbon Dioxide 26 BUN 14 Creatinine 0.75 Glucose 102 Calcium 8.8 - ABG Interpretation ABG results: PT/INR, D-dimer PT 11.3 Seconds (9.4-12.1) 09/24/18 04:43 Consult Discharge Plan - Plan Referrals: NONE,PCP [Primary Care Provider] - - Attending Attestation I examined this patient and my medical decision-making was reviewed with the Resident Physician on 09/28/18. I agree with the documented findings, dispo sition and treatment plan as described except to the extent set forth below. Ms Chilel is currently admitted for acute bowel obstruction. She is positive for Campylobacter. She remains moderate to high risk due to potential for worsening clinical status. Ms Chilel is feeling a little better. She was started on Azithromycin last night for Campylobacter. Still with some diarrhea but more like her chronic now. No fever or chills. Tolerating diet and now hungry. Exam Alert Comfortable Mucus membranes dry Heart not tachy No wheeze abd with bowel sounds No edema I/P 1. Acute Campylobacter diarrhea - on IV azithromycin 2. SBO resolved Further diagnoses and plan as above. <Turner Khan - Last Filed: 09/28/18 15:39> Hospitalist Progress Note - Encounter Date of Encounter: 09/28/18 Time of Encounter: 09:55 - Subjective Interval History: The patient is resting comfortably in bed at time of examination. She did have a GI panel completed overnight which demonstrated presence of Campylobacter by PCR. She continued to have watery bowel movements throughout the day yesterday and overnight. She was started on azithromycin by the night team, and she says that she is feeling a lot better today. She has been on clear liquid diet today and tolerating it quite well. She has no acute complaints today. - Exam Vitals: Temp Pulse Resp BP Pulse Ox 97.9 F 74 18 142/79 98 09/28/18 06:31 09/28/18 06:31 09/28/18 06:31 09/28/18 06:31 09/28/18 06:31 Exam: Gen: Vitals noted. No acute distress but appears very uncomfortable HENT: Atraumatic; oropharynx clear with dry membranes and no mucosal ul cerations; normal hard and soft palate. Pulmonary: Diffusely wheezy to auscultation bilaterally Abdomen: soft, tender to deep palpation. No masses or hepatosplenomegaly. There is a midline vertical scar with bulging hernia noted bilaterally. Improved distension Extremities: no BLE edema, nontender calf, no cyanosis or clubbing Skin: Normal temperature, turgor and texture; no rash, ulcers or subcutaneous nodules - Assessment and Plan (1) Diarrhea Current Visit: Yes Status: Chronic Assessment and Plan: Diarrhea, infectious GI panel demonstrated Campylobacter by PCR Patient was started on IV azithromycin overnight by hospitalist team We will transition the patient to by mouth azithromycin for a total of a 3 day course Continue to monitor fluid status (2) Bowel obstruction Current Visit: Yes Status: Resolved Assessment and Plan: Bowel obstruction involving the large and small intestine as noted on CT abdomen Patient does have history of small and large bowel obstruction the past req uiring surgical correction Surgery was consulted from the ED, notes that surgery was completed in 1998 in 1999 at [facility] and patient does have hostile abdomen NG tube removed per surgery, appears to be resolving at this time Pt started on clear liquid diet, advance to full liquid in the morning and afternoon, if she continues to do well then we will advance as tolerated Surgery has signed off, no need for procedure Continue to monitor (3) Hypokalemia Current Visit: Yes Status: Resolved Assessment and Plan: Resolved (4) CAD (coronary artery disease) Current Visit: Yes Status: Chronic Assessment and Plan: CAD s/p PCI 7-8 years ago EKG in ED shows nonspecific ST-T wave changes, will need to compare to old EKG Request records from [place] ED Echo shows LVEF 55-60% with mild LVDD but otherwise normal (5) Hypertension Current Visit: Yes Status: Chronic Assessment and Plan: Monitor BP, starting to rise. Possibly secondary to pain and increased fluids Will add back home meds (6) COPD (chronic obstructive pulmonary disease) Current Visit: Yes Status: Chronic Assessment and Plan: Suspect severe COPD, on brochodilators at home however unknown which ones On home O2 at night at 2L Will start advair, duonebs as needed Continous O2 monitoring Titrate O2 to 88-92% (7) Tobacco abuse Current Visit: Yes Status: Chronic Assessment and Plan: Nicotine patch (8) Incisional hernia Current Visit: Yes Status: Chronic (9) DVT prophylaxis Current Visit: Yes Status: Acute Assessment and Plan: SQ Heparin - Time Spent with Patient Total time spent is greater than 50% in coordination of care (as documented) at patient's floor/unit and/or counseling patient: Internal Medicine: Result - Labs CBC & Chem 7: 09/28/18 03:45 09/28/18 03:45 Labs: Short CBC 09/28/18 Range/Units 03:45 WBC 11.3 H (4.3-11.1) K/mcL Hgb 13.8 (11.5-15.4) g/dL Hct 42.1 (35.3-44.9) % Plt Count 211 (140-400) K/mcL Neutrophils # 7.8 (1.6-8.9) K/mcL BMP 09/28/18 03:45 Sodium 139 Potassium 3.8 Chloride 106 Carbon Dioxide 26 BUN 14 Creatinine 0.75 Glucose 102 Calcium 8.8 - ABG Interpretation ABG results: PT/INR, D-dimer PT 11.3 Seconds (9.4-12.1) 09/24/18 04:43 _ <Marlon Rothman - Last Filed: 09/28/18 13:11> (2) Bowel obstruction Qualifiers: Intestinal obstruction type: unspecified Intestinal obstruction extent: unspecified extent Qualified Code(s): K56.609 - Unspecified intestinal obstruction, unspecified as to partial versus complete obstruction (3) CAD (coronary artery disease) Qualifiers: Coronary Disease-Associated Artery/Lesion type: [place] artery [place] vs. transplanted heart: [place] heart Associated angina: without angina Qualified Code(s): I25.10 - Atherosclerotic heart disease of [place] coronary artery without angina pectoris (4) Hypertension Qualifiers: Hypertension type: essential hypertension Qualified Code(s): I10 - Essential (primary) hypertension (6) COPD (chronic obstructive pulmonary disease) Qualifiers: COPD type: chronic bronchitis Chronic bronchitis type: simple Qualified Code(s): J41.0 - Simple chronic bronchitis (8) Incisional hernia Qualifiers: Obstruction and gangrene presence: without obstruction or gangrene Qualified Code(s): K43.2 - Incisional hernia without obstruction or gangrene; K43.91 - Incisional hernia, without obstruction or gangrene (9) Diarrhea Qualifiers: Diarrhea type: functional diarrhea Qualified Code(s): K59.1 - Functional diarrhea <Turner Khan - Last Filed: 09/28/18 15:39> (1) Diarrhea Qualifiers: Diarrhea type: functional diarrhea Qualified Code(s): K59.1 - Functional diarrhea (2) Bowel obstruction Qualifiers: Intestinal obstruction type: unspecified Intestinal obstruction extent: unspecified extent Qualified Code(s): K56.609 - Unspecified intestinal obstruction, unspecified as to partial versus complete obstruction (4) CAD (coronary artery disease) Qualifiers: Coronary Disease-Associated Artery/Lesion type: [place] artery [place] vs. transplanted heart: [place] heart Associated angina: without angina Qualified Code(s): I25.10 - Atherosclerotic heart disease of [place] coronary artery without angina pectoris (5) Hypertension Qualifiers: Hypertension type: essential hypertension Qualified Code(s): I10 - Essential (primary) hypertension (6) COPD (chronic obstructive pulmonary disease) Qualifiers: COPD type: chronic bronchitis Chronic bronchitis type: simple Qualified Code(s): J41.0 - Simple chronic bronchitis (8) Incisional hernia Qualifiers: Obstruction and gangrene presence: without obstruction or gangrene Qualified Code(s): K43.2 - Incisional hernia without obstruction or gangrene; K43.91 - Incisional hernia, without obstruction or gangrene
[2018-09-28] MEDS: Pantoprazole 40 MG VIAL IVP SCH (09:52)
[2018-09-28] MEDS: Nicotine 21 MG PATCH.TD24 TD SCH (09:52)
[2018-09-28] MEDS: D5% in 0.45% NACL 1,000 ML IVC SCH ×2 (09:52→19:51)
--- NOTE | 2018-09-28 13:12 | Electrocardiograph Report ---
[address] [place], [place] [address] Test Date: 2018-09-23 Pat Name: Staci Chilel Department: [id number] Room: 3A15 Gender: Surveillance System Monitor: : 1950 Requested By: Alex Kaufman Order Number: [id number] Reading MD: Dwaine Randall Measurements Intervals [place] Rate: 73 P: 65 [place]: 140 QRS: 73 QRSD: 106 T: 64 QT: 411 QTc: 453 Interpretive Statements Sinus rhythm Electronically Signed On 09-28-2018 13:11:06 EDT by Dwaine Randall
[2018-09-28] MEDS ORDERED: Azithromycin 250 MG TABLET PO SCH (20:00)
[2018-09-28] MEDS: Gabapentin 300 MG CAPSULE PO SCH ×2 (22:41→22:45)
[2018-09-29] MEDS: D5% in 0.45% NACL 1,000 ML IVC SCH ×2 (06:11→09:34)
[2018-09-29] MEDS: *HR* Heparin 5,000 UNIT/ML VIAL SQ SCH (06:11)
[2018-09-29] MEDS ORDERED: NON-FORMULARY MEDICATION 1 EACH EACH (Spironolact/Hydrochlorothiazid [Aldactazide 25-25 Ta PO SCH (09:00)
[2018-09-29] MEDS ORDERED: Spironolactone 25 MG TABLET PO SCH (09:00)
[2018-09-29] MEDS ORDERED: hydroCHLOROthiazide 25 MG TABLET PO SCH (09:00)
[2018-09-29] MEDS: Gabapentin 300 MG CAPSULE PO SCH (09:33)
[2018-09-29] MEDS: Nicotine 21 MG PATCH.TD24 TD SCH (09:33)
[2018-09-29 10:15] VITALS: BP 146/100
--- NOTE | 2018-09-29 10:36 | Discharge Summary ---
<Turner Khan - Last Filed: 09/29/18 11:08> - NOTES TO OUTPATIENT PROVIDER Notes to Outpatient Provider: Bowel obstruction resolved with NG decompression, campylobacter diarrhea tx with 3d azithromycin. Advancing diet without problems Date of Encounter: 09/29/18 Time of Encounter: 09:20 - Discharge Diagnosis (1) Bowel obstruction Priority: Primary Status: Resolved Qualifiers: Intestinal obstruction type: unspecified Intestinal obstruction extent: unspecified extent Qualified Code(s): K56.609 - Unspecified intestinal obstruction, unspecified as to partial versus complete obstruction (2) CAD (coronary artery disease) Priority: Secondary Status: Chronic Qualifiers: Coronary Disease-Associated Artery/Lesion type: red devil artery [place] vs. transplanted heart: red devil heart Associated angina: without angina Qualified Code(s): I25.10 - Atherosclerotic heart disease of red devil coronary artery without angina pectoris (3) Hypertension Priority: Secondary Status: Chronic Qualifiers: Hypertension type: essential hypertension Qualified Code(s): I10 - Essential (primary) hypertension (4) DVT prophylaxis Priority: Secondary Status: Acute (5) COPD (chronic obstructive pulmonary disease) Priority: Secondary Status: Chronic Qualifiers: COPD type: chronic bronchitis Chronic bronchitis type: simple Qualified Code(s): J41.0 - Simple chronic bronchitis (6) Tobacco abuse Priority: Secondary Status: Chronic (7) Incisional hernia Priority: Secondary Status: Chronic Qualifiers: Obstruction and gangrene presence: without obstruction or gangrene Qualified Code(s): K43.2 - Incisional hernia without obstruction or gangrene; K43.91 - Incisional hernia, without obstruction or gangrene (8) Hypokalemia Priority: Secondary Status: Resolved (9) Campylobacter diarrhea Priority: Secondary Status: Acute Hospital course: Ms. Chilel is a 67 year old female with history of multiple bowel surgeries, CAD, smoking, COPD, who presented to the hospital with abdominal pain, nausea, and vomiting for several days duration. She was found to have a bowel obstruction involving the large and small intestine, and surgery was consulted for management. An NG tube was placed to LIS for decompression and remained for 72hr, however patient began having liquid bowel movements with gas in the first 24hr which continued to increase in frequency. Following the removal of the NG tube at 72hr, surgery determined no procedure was necessary as the obstruction had resolved, however the patient continued to have frequent liquid stools, and she also developed generalized malaise on top. A GI/Stool panel was ordered, and the patient was found to have campylobacter on PCR. She was started on Azithromycin, of which she completed a 3 day course. She is now able to eat a full regular diet without n/v, and she is having formed stools. She will be discharged to home with home health, and should follow up with PCP aand with general surgeon regarding long-standing ventral hernia. Discharge discussed with: patient, nurse, social work, case management, environmental remediation consultant - Time Spent with Patient Total time spent providing and/or coordinating discharge services: Time spent: Less than 30 minutes - Discharge Medications Prescriptions: New Ondansetron ODT [Zofran ODT] 4 mg SL Q4HR #20 tab.rapdis Continued Albuterol Neb [Proventil Neb] 2.5 mg IH Q6H PRN PRN Reason: Shortness Of Breath Albuterol Sulfate [Ventolin Hfa] 2 puff IH Q6H PRN PRN Reason: Shortness Of Breath Atorvastatin Calcium [Lipitor] 20 mg PO HS Docusate [Colace] 100 mg PO BID PRN PRN Reason: Constipation Escitalopram [Lexapro] 20 mg PO DAILY Fluticasone/Vilanterol [Breo Ellipta 200-25 Mcg INH] 1 puff IH DAILY Gabapentin 600 mg PO TID Levothyroxine Sodium 125 mcg PO DAILY OxyCODONE/APAP 5/325 [Percocet 5/325 MG] 1 tab PO TID PRN PRN Reason: Pain Pantoprazole Sodium [Protonix] 40 mg PO DAILY Spironolact/Hydrochlorothiazid [Aldactazide 25-25 Tablet] 1 tab PO DAILY Umeclidinium [place] [Incruse Ellipta] 1 puff IH DAILY Home Medications: Albuterol Neb [Proventil Neb] 2.5 mg IH Q6H PRN 09/23/18 [History] Albuterol Sulfate [Ventolin Hfa] 2 puff IH Q6H PRN 09/23/18 [History] Atorvastatin Calcium [Lipitor] 20 mg PO HS 09/23/18 [History] Docusate [Colace] 100 mg PO BID PRN 09/23/18 [History] Escitalopram [Lexapro] 20 mg PO DAILY 09/23/18 [History] Fluticasone/Vilanterol [Breo Ellipta 200-25 Mcg INH] 1 puff IH DAILY 09/23/18 [History] Gabapentin 600 mg PO TID 09/23/18 [History] Levothyroxine Sodium 125 mcg PO DAILY 09/23/18 [History] OxyCODONE/APAP 5/325 [Percocet 5/325 MG] 1 tab PO TID PRN 09/23/18 [History] Pantoprazole Sodium [Protonix] 40 mg PO DAILY 09/23/18 [History] Spironolact/Hydrochlorothiazid [Aldactazide 25-25 Tablet] 1 tab PO DAILY 09/23/18 [History] Umeclidinium [place] [Incruse Ellipta] 1 puff IH DAILY 09/23/18 [History] Ondansetron ODT [Zofran ODT] 4 mg SL Q4HR #20 tab.rapdis 09/29/18 [Rx] Allergies/Adverse Reactions: Allergy/AdvReac Type Severity Reaction Status Date / Time codeine AdvReac Itching Verified 09/23/18 19:36 Date of admission: 09/23/18 19:13 Primary care physician: PCP NONE Consults: 09/24/18 13:59 consult to supervisor grain and yeast plants [Consult to Nutrition] [CONS] Routine Comment: patient needs TPN Consulting Provider: NUTRITION Reason for Dietary Consult: TPN Start and Manage 09/24/18 16:33 Consult to Invasive Line Access Team [CONS] Routine Reason for Consult: Picc Line Insertion for TPN Line Type: PICC Discharging clinician: Turner Khan Anticipated date of discharge: 09/29/18 - Constitutional Vitals: Temp Pulse Resp BP Pulse Ox 98.1 F 76 15 146/100 97 09/29/18 10:05 09/29/18 10:05 09/29/18 10:05 09/29/18 10:05 09/29/18 10:05 Exam: Gen: Vitals noted. No acute distress, in good spirits Eyes: anicteric sclerae, moist conjunctivae; no lid-lag; Pupils equal and reactive to light HENT: Atraumatic; oropharynx clear with moist mucous membranes and no mucosal ulcerations; normal hard and soft palate Neck: Trachea midline; supple, no thyromegaly or lymphadenopathy Cardiac: RRR, no murmur, +S1/S2 Pulmonary: Diffusely wheezy to auscultation bilaterally Abdomen: soft, nontender to deep palpation. No masses or hepatosplenomegaly. There is a midline vertical scar and low horizontal scar with bulging hernia noted bilaterally MSK: ROM intact, no joint swelling noted Extremities: no BLE edema, nontender calf, no cyanosis or clubbing Skin: Normal temperature, turgor and texture; no rash, ulcers or subcutaneous nodules Neuro: moves all extremities, no focal deficits. Psych: Appropriate mood and behavior. A&Ox3 - Patient Status Disposition: Home Health Service Condition: Fair Functional capacity at discharge: independent ambulation Overall status at discharge: patient is back to baseline - Discharge Instructions Follow Up With: Mj Carlin MD [Non-Partnered Physician] - 10/06/18 3:35 pm Shannan Moreno [Non-Partnered Physician] - 10/06/18 11:30 am Additional Instructions: -Follow-up with PCP in 1-2 weeks. -Follow-up with Surgery in 1-2 weeks -Continue to advance diet as tolerated, if you develop nausea or vomiting, or severe abdominal pain contact your doctor and decrease your food intake. -Take Zofran under tongue as needed for nausea. - Diet and Activity Activity: increase activity as tolerated Diet: advance to your usual diet <Jae Person - Last Filed: 09/29/18 15:10> Date of Encounter: 09/29/18 Date of admission: 09/23/18 19:13 Primary care physician: PCP NONE Consults: 09/24/18 13:59 consult to supervisor grain and yeast plants [Consult to Nutrition] [CONS] Routine Comment: patient needs TPN Consulting Provider: NUTRITION Reason for Dietary Consult: TPN Start and Manage 09/24/18 16:33 Consult to Invasive Line Access Team [CONS] Routine Reason for Consult: Picc Line Insertion for TPN Line Type: PICC - Constitutional Vitals: Temp Pulse Resp BP Pulse Ox 98.1 F 76 15 146/100 97 09/29/18 10:05 09/29/18 10:05 09/29/18 11:01 09/29/18 10:09/29/18 11:01 - Attending Attestation Patient seen and examined. I agree with the discharge plan as documented above by the resident. In summary, Staciangela Hartmanburn p/w abd pain and N/V and subsequently diarrhea. Imaging revealed SBO which improved with NG decompression; no surgical intervention needed. Cause unknown, although possibly 2/2 campylobacter infection causing diarrheal illness. Treated with azithromycin. On day of discharge, pt symptoms improved and able to maintain PO hydration and food intake and abd is soft/nontender. Time spent on discharge: 25 minutes
[2018-09-29] MEDS: Budesonide/Formoterol 80/4.5 MDI IH SCH (10:59)
--- NOTE | 2018-09-29 11:07 | Physician Discharge Referral ---
Home Health/Hosp Referral Info Transfer to: Home Health Attending Provider: Jae Person Provider in Charge Post Discharge: PCP - Diagnosis (1) Bowel obstruction Priority: Primary Status: Resolved (2) Campylobacter diarrhea Priority: Secondary Status: Acute (3) CAD (coronary artery disease) Priority: Secondary Status: Chronic (4) Hypertension Priority: Secondary Status: Chronic (5) COPD (chronic obstructive pulmonary disease) Priority: Secondary Status: Chronic (6) Tobacco abuse Priority: Secondary Status: Chronic (7) Incisional hernia Priority: Secondary Status: Chronic (8) Hypokalemia Priority: Secondary Status: Resolved - Respiratory Orders Oxygen / L per min (Per existing home order) Smoking Cessation: Smoking cessation has been advised. For more information, call the [employer] Quit Line at 5-001-VFNH-NOW. - Diet/Nutrition Diet/Nutrition Orders: Regular (Advance as tolerated) - Activity Activity Orders: Ambulate - Services Needed Following services are medically necessary services: Nursing, Home Health Aide - Transfer Medications Prescriptions: Ondansetron ODT [Zofran ODT] 4 mg SL Q4HR #20 tab.rapdis Home Medications: Albuterol Neb [Proventil Neb] 2.5 mg IH Q6H PRN 09/23/18 [History] Albuterol Sulfate [Ventolin Hfa] 2 puff IH Q6H PRN 09/23/18 [History] Atorvastatin Calcium [Lipitor] 20 mg PO HS 09/23/18 [History] Docusate [Colace] 100 mg PO BID PRN 09/23/18 [History] Escitalopram [Lexapro] 20 mg PO DAILY 09/23/18 [History] Fluticasone/Vilanterol [Breo Ellipta 200-25 Mcg INH] 1 puff IH DAILY 09/23/18 [History] Gabapentin 600 mg PO TID 09/23/18 [History] Levothyroxine Sodium 125 mcg PO DAILY 09/23/18 [History] OxyCODONE/APAP 5/325 [Percocet 5/325 MG] 1 tab PO TID PRN 09/23/18 [History] Pantoprazole Sodium [Protonix] 40 mg PO DAILY 09/23/18 [History] Spironolact/Hydrochlorothiazid [Aldactazide 25-25 Tablet] 1 tab PO DAILY 09/23/18 [History] Umeclidinium [place] [Incruse Ellipta] 1 puff IH DAILY 09/23/18 [History] Ondansetron ODT [Zofran ODT] 4 mg SL Q4HR #20 tab.rapdis 09/29/18 [Rx] Allergies/Adverse Reactions: Allergy/AdvReac Type Severity Reaction Status Date / Time codeine AdvReac Itching Verified 09/23/18 19:36 Certification: Further, I certify that my clinical findings support that this patient is homebound (i.e. absences from home require considerable and taxing effort and are for medical reasons or mormonism services or infrequently or short duration when for other reasons) because: Homebound Reason: Patient requires assistance of a person or device to safely leave home, Leaving home requires considerable and taxing effort due to cond ition, Severity of cardiac or pulmonary status limits activity tolerance Attestation: My signature below is to certify that this patient is under my care and that I, or nurse practitioner, or a physician's grants assistant working with me, has a [id number] encounter with this patient.
== END 2018-09-29 12:40 | disposition home health service (06) | DRG 389 ==
LOC: EMEROOARM 13:08 → 3ANU 19:13 → SUATTDRO 19:13 → 3ANU 21:28
PROVIDERS: ADMIT Internal Medicine; ATTEND Internal Medicine